=== PATIENT | male | born 1960 | race Caucasian/White ===

== ENCOUNTER 2020-05-12 09:59 | Outpatient (REF) | payer MEDICARE, MEDICAID, SELFPAY ==
[2020-05-12 11:14] LABS: Alanine Aminotransferase 30 U/L (0-40); Aspartate Amino Transferase 21 U/L (5-37)
== END 2020-05-12 10:00 | disposition home or self-care (01) ==
LOC: HO.LAB 09:59
PROVIDERS: PCP Family Medicine; Visit Provider Family Medicine
DX: E78.00 Pure hypercholesterolemia, unspecified (principal)
CPT/HCPCS: 82550; 84450; 84460

== ENCOUNTER 2021-02-16 12:00 | Outpatient (RCR) | payer MEDICARE, MEDICAID, SELFPAY | END 2021-03-23 14:34 | disposition home or self-care (01) | LOC: HO.PT 12:00 | PROVIDERS: Visit Provider Orthopaedic Surgery | DX: Z96.651 Presence of right artificial knee joint (principal) | CPT/HCPCS: 97110; 97140; 97161; 97530 ==

== ENCOUNTER 2021-03-15 11:49 | Outpatient (REF) | payer MEDICARE, MEDICAID, SELFPAY ==
[2021-03-15 13:24] LABS: Alanine Aminotransferase 32 U/L (0-40); Anion Gap 10 (12-20); Aspartate Amino Transferase 24 U/L (5-37); Blood Urea Nitrogen 14 mg/dL (9-16); Carbon Dioxide 25 mmol/L (22-29); Chloride 108 mmol/L (96-108); Estimated Glomerular Filt Rate > 60; Potassium 4.3 mmol/L (3.3-5.1); Sodium 139 mmol/L (135-145)
== END 2021-03-15 11:50 | disposition home or self-care (01) ==
LOC: HO.LAB 11:49
PROVIDERS: PCP Family Medicine; Visit Provider Family Medicine
DX: I10 Essential (primary) hypertension (principal); E78.00 Pure hypercholesterolemia, unspecified; Z79.899 Other long term (current) drug therapy
CPT/HCPCS: 36415; 80051; 82550; 82565; 84450; 84460; 84520

== ENCOUNTER 2021-07-29 02:24 | Emergency (ER) | payer MEDICARE, MEDICAID, SELFPAY ==
[2021-07-29 02:36] VITALS: BP 125/86; PULSE 79; RESP 16; TEMP 37.1; O2SAT 94; BMI 33.5
[2021-07-29 03:09] VITALS: BP 121/74; PULSE 74; RESP 16; TEMP 36.6; O2SAT 95
--- NOTE | 2021-07-29 03:10 | ED_ITS ---
HPI - General Adult General Chief complaint: General Medical Stated complaint: sinuses & eyes irritated Time Seen by Provider: 07/29/21 03:09 Source: patient Mode of arrival: ambulatory Limitations: no limitations History of Present Illness HPI narrative: 60 years old male came in for evaluation of facial pressure and possible sinus infection. Symptoms started 2 days ago as pressure behind his eyes and upper teeth, with greenish discharge from the right nostril, patient had a history of sinus infection in the past and this is similar to his previous presentation, no fever, no chills. Patient received 3 vaccination for his COVID. Related Data Previous Rx's Medication Instructions Recorded amoxicillin 875 mg-potassium 1 tab PO BID #20 tab 07/29/21 clavulanate 125 mg tablet Allergies Allergy/AdvReac Type Severity Reaction Status Date / Time No Known Allergies Allergy Verified 07/29/21 02:35 Review of Systems Review of Systems: All other systems are reviewed and are negative Constitutional: Reports as per HPI and Reports no additional constitutional complaints Eyes: Reports as per HPI and Reports no additional eye complaints Reports system reviewed and no additional complaints, except as documented Cardiovascular: Reports as per HPI and Reports no additional cardiovascular complaints Respiratory: Reports as per HPI and Reports no additional respiratory complaints Gastrointestinal: Reports as per HPI and Reports no additional gastrointestinal complaints Genitourinary: Reports no additional female genitourinary complaints Musculoskeletal: Reports no additional musculoskeletal complaints Skin/Breast: Reports system reviewed and no additional complaints, except as docu Psychiatric: Reports no additional psychiatric complaints Endocrine: Reports no additional endocrine complaints Hematologic/Lymphatic: Reports no additional hematologic/lymphatic complaints Allergic/Immunologic: Reports no additional allergic/immunologic complaints Reports system reviewed and no additional complaints, except as documented and Reports Abnormal speech present [facility] Past Medical History Medical History High cholesterol Surgical History History of hip replacement Social History Social History Advance Directives: No Physical Exam ED Vital Signs: Vital Signs - 24 hr 07/29/21 02:36 07/29/21 03:09 Temperature 98.8 F 97.9 F Pulse Rate 79 74 Respiratory Rate 16 16 Blood Pressure 125/86 121/74 Pulse Oximetry 94 95 BMI result Body Mass Index 33.5 Vital signs have been reviewed as appeared to be correct. Blood pressure normal. Heart rate normal. Respiration rate normal. Temperature normal. Oxygen saturation normal. Appearance: Alert. Oriented X3. No acute distress. Head: Normal external exam. Normocephalic. Atraumatic. No [place]is signs noted. No raccoon eyes noted Eyes: PERRLA. EOMI. Conjunctiva and sclera normal. Eyelids normal. ENT: TM's Normal. Pharynx normal. Bilateral maxillary sinuses tenderness with percussion right more than left, right nostril erythema with no purulent discharge. Mild bifrontal sinuses tenderness with percussion. Neck: Normal inspection. Neck supple. FROM. No adenopathy. Thyroid Normal. No meningeal signs. No neck mass noted. CVS: Normal heart rate and rhythm. Heart sound normal. No murmurs noted. Pulses normal throughout. Respiratory: No respiratory distress. Painless inspiration. Breath sounds nor mal. No wheezes/rales/rhonchi noted. Chest nontender. No accessory muscle usage noted or decreased air movement noted. Abdomen: Soft and nontender. Bowel sounds normal in all 4 quadrants. No distent ion noted. No organomegaly noted. No visible injury noted. Back: No CVA tenderness. Full range of motion noted. Skin: Skin warm and dry. Normal skin color. Normal skin turgor. No rashes/lesions/lacerations noted. Extremities: No lower extremity edema. Extremities exhibit normal range of motion. Extremities nontender. Neuro: Oriented X 3. Cranial nerve exam: II-XII are grossly intact No motor deficit. No sensory deficit. Reflexes normal. Course Course Course Narrative: Assessment and plan print 60-year-old male came with facial pressure, physical exam is consistent with maxillary sinusitis, will start the patient on Augmentin/1 dose of prednisone. Discharge Plan Discharge Clinical Impression: Acute sinusitis Patient Disposition: Home, Self-Care Instructions: Sinusitis (ED) Prescriptions: New amoxicillin-pot clavulanate 875-125 mg tablet 1 tab PO BID Qty: 20 0RF Referrals: Ramesh Gaytan MD [Primary Care Provider] - 2 days
[2021-07-29] MEDS: Amoxicillin/Potassium Clav 875 MG TABLET PO (03:21)
[2021-07-29] MEDS: Ibuprofen 800 MG TABLET PO (03:21)
[2021-07-29] MEDS: predniSONE 10 MG TABLET 60 MG PO (03:22)
== END 2021-07-29 03:32 | disposition home or self-care (01) ==
PROVIDERS: Emergency Provider Emergency Medicine; PCP Family Medicine
DX: J01.00 Acute maxillary sinusitis, unspecified (principal)
CPT/HCPCS: 99283; 99284

== ENCOUNTER 2021-10-25 08:58 | Emergency (ER) | payer MEDICARE, MEDICAID, SELFPAY ==
[2021-10-25 09:03] VITALS: BP 125/105; PULSE 72; RESP 18; TEMP 36.7; O2SAT 97; BMI 33.5
--- NOTE | 2021-10-25 09:23 | ED_ITS ---
HPI - URI/Sore Throat General Chief Complaint: Upper Respiratory Symptoms Stated Complaint: difficulty breathing through nose Time Seen by Provider: 10/25/21 09:16 Source: patient Mode of arrival: ambulatory Limitations: no limitations History of Present Illness HPI Narrative: 61-year-old male presenting to the ED with complaints of nasal congestion / rhinorrhea with intermittent headaches worse when he leans forward he reports he believes he has a sinus infection. Was seen here approximately 3 months ago and diagnosed with a sinus infection and sent home with antibiotics and he reports his symptoms completely resolved. He reports that he has been having the symptoms for approximately 1 week. He denies recent travel or sick contacts. He denies any fevers, chills, dizziness, neck pain/ stiffness, sore throat, loss of taste or smell, cough, sputum production, nausea /vomiting/ diarrhea constipation, abdominal pain, rashes, recent travel or sick contacts. Reports that he does not want to be tested for COVID and the flu. MD elicited complaint: rhinorrhea, nasal congestion and sinus pain Onset (ago): week(s) (1) Consistency: constant and progressively worsening Severity: moderate Description of mucous: yellow (/hermosillo) Able to tolerate fluids by mouth: Yes Exacerbating factors: leaning forward Relieving factors: other (Mild relief with [id number] nasal sprays/cold medicine) Associated symptoms: headache, rhinorrhea and nasal congestion Treatments prior to arrival: cold medicine ( /nasal spray) Related Data Previous Rx's Medication Instructions Recorded amoxicillin 875 mg-potassium 1 tab PO BID #20 tab 07/29/21 clavulanate 125 mg tablet amoxicillin 875 mg-potassium 1 tab PO BID 10 Days #20 tab 10/25/21 clavulanate 125 mg tablet Allergies Allergy/AdvReac Type Severity Reaction Status Date / Time No Known Allergies Allergy Verified 07/29/21 02:35 Review of Systems Review of Systems: Constitutional : No Weight loss, No Fever, No Chills, No N ight Sweats, No Fatigue, No Malaise ENT/Mouth : No Hearing loss, No Ear Pain, + Nasal Congestion, + Sinus Pain, No Hoarseness, No sore throat, + Rhinorrhea, No Swallowing Difficulty Eyes: No Eye Pain, No Swelling, No Redness, No Foreign Body, No Discharge, No Vision Changes Cardiovascular : No Chest Pain, No SOB, No Dyspnea on Exertion, No Orthopnea, No Edema, No Palpitations Respiratory : No Cough, No Sputum, No Wheezing, No Smoke Exposure, No Dyspnea Gastrointestinal : No Nausea, No Vomiting, No Diarrhea, No Constipation, No abdominal Pain, No Hematochezia, No Melena Genitourinary : no irregular bleeding, No Dysuria, No Urinary Frequency, No Hematuria, No Urinary Incontinence, No Urgency, No Flank Pain, No Urinary Flow Changes, No Hesitancy Musculoskeletal : No joint pain, No Myalgias, No Joint Swelling Skin : No Skin Lesions, No rash Neuro : No Weakness, No Numbness, No Paresthesias, No Loss of Consciousness, No Dizziness, No Headache Psych : No Anxiety/Panic, No Depression, No SI/HI/AH/VH, No Social Issues, Heme/Lymph: No Bruising, No Bleeding,No Lymphadenopathy Endocrine : No Polyuria, No Polydipsia, No Temperature Intolerance Yes all other systems are reviewed and are negative [facility] Past Medical History Attestation statement: The following information was validated with the patient. Medical History High cholesterol Surgical History History of hip replacement Physical Exam Vital Signs: Vital Signs: Last Vital Signs Temp 98.1 F 10/25/21 09:03 Pulse 72 10/25/21 09:03 Resp 18 10/25/21 09:03 BP 125/105 H 10/25/21 09:03 Pulse Ox 97 10/25/21 09:03 BMI result Body Mass Index 33.5 vital signs have been reviewed as normal and appeared to be correct. Blood pressure normal. Heart rate normal. Respiration rate normal. Temperature normal. Oxygen saturation normal. Appearance: Alert. Oriented X3. No acute distress. Head: Normal external exam. Normocephalic. Atraumatic. Eyes: PERRLA. EOMI. Conjunctiva and sclera normal. Eyelids normal. ENT: EAC normal. TM's Normal. Pharynx normal. Uvula midline. Moist mucous membranes. No lesions/ulcerations or masses noted on the tongue. Normal voice. No trismus noted. No drooling noted. No muffled voice noted. Sinus pressure pain. Neck: Normal inspection. Neck supple. FROM. No adenopathy. Thyroid Normal. No tracheal deviation noted. No crepitus is noted. No meningeal signs. No neck mass noted. No signs of trauma noted. CVS: Normal heart rate and rhythm. Heart sound normal. Pulses normal throughout. No murmurs/rales/gallops. Respiratory: No respiratory distress. Painless inspiration. Breath sounds normal. No wheezes/rales/rhonchi noted. Chest nontender. No crepitus is noted. No signs of trauma noted. No accessory muscle usage noted or decreased air movement noted. No signs of trauma. Abdomen: Soft and nontender. Bowel sounds normal in all 4 quadrants. No distention noted. No organomegaly noted. No visible injury noted. Back: Full range of motion noted. Nontender. No signs of trauma. Patient neuro intact bilaterally and distally on all 4 extremities. Patient's reflexes intact bilaterally and distally on all 4 extremities. No rashes/lesion/induration/fluctuance or signs of infection noted. Skin: Skin warm and dry. Normal skin color. Normal skin turgor. No rashes/ lesions/lacerations noted. Extremities: No lower extremity edema. No calf tenderness is noted. Extremities exhibit normal range of motion and nontender. Neuro: Oriented X 3. No motor deficit. No sensory deficit. Reflexes normal. Normal steady gait. No focal neuro deficits noted. CN's II-XII intact bilaterally? Vascular: + radial pulses/+ 2 distal pedal pulses/+2 dorsalis pedis b/l. Normal cap refill. No cyanosis noted to upper extremity nails and lower extremity toes nails. Course Course Course Narrative: Patient most likely sinusitis. He is declining COVID and flu swab. Recheck blood pressure was 132/64. Therefore at this time will DC home with antibiotics and symptomatic treatment instructions return if any new or worsening symptoms to follow up with primary care provider. Patient understands agrees with this plan. MDM - URI/Sore Throat Medical Records Attestation: I reviewed the patient's medical records. Discharge Plan Discharge Clinical Impression: Sinusitis Patient Disposition: Home, Self-Care Instructions: Sinusitis (ED) Prescriptions: New amoxicillin-pot clavulanate 875-125 mg tablet 1 tab PO BID 10 Days Qty: 20 0RF No Action amoxicillin-pot clavulanate 875-125 mg tablet 1 tab PO BID Qty: 20 0RF Referrals: Ramesh Gaytan MD [Primary Care Provider] - 2 days
[2021-10-25 09:29] VITALS: BP 132/64
== END 2021-10-25 09:37 | disposition home or self-care (01) ==
LOC: HO.ED 09:29
PROVIDERS: Emergency Provider Student in an Organized Health Care Education/Training Program; PCP Family Medicine
DX: J32.9 Chronic sinusitis, unspecified (principal)
CPT/HCPCS: 99282; 99283

== ENCOUNTER 2022-02-19 19:58 | Emergency (ER) | payer MEDICARE, MEDICAID, SELFPAY ==
[2022-02-19 20:09] VITALS: BP 145/74; PULSE 85; RESP 18; TEMP 37.3; O2SAT 95; BMI 32.1
[2022-02-19 21:41] LABS: COVID-19 Test Negative (Negative); IDNOW Serial# 16C4AD1C
--- NOTE | 2022-02-19 21:50 | ED.GENADULT ---
HPI - General Adult General Chief complaint: General Medical Stated complaint: congested,sinus pain Time Seen by Provider: 02/19/22 20:57 Source: patient Mode of arrival: ambulatory History of Present Illness HPI narrative: 61-year-old male with 3rd episode nasal congestion and drainage with significant sinus pain, less seen here in October of this year now presents with pain in drainage since earlier this morning but denies any associated fever or chills, shortness of breath or chest pain. Related Data Previous Rx's Medication Instructions Recorded amoxicillin 875 mg-potassium 1 tab PO BID #20 tabs 07/29/21 clavulanate 125 mg tablet amoxicillin 875 mg-potassium 1 tab PO BID Sinusitis 10 days 10/25/21 clavulanate 125 mg tablet #20 tabs amoxicillin 875 mg-potassium 1 tab PO Q12H 10 days #20 tabs 02/19/22 clavulanate 125 mg tablet Allergies Allergy/AdvReac Type Severity Reaction Status Date / Time No Known Allergies Allergy Verified 07/29/21 02:35 Review of Systems Review of Systems: Pertinent positives and negatives as stated in HPI 10 point review of systems is otherwise negative. PMFSH Past Medical History Source: nursing notes reviewed Medical History High cholesterol Surgical History History of hip replacement Social History Social History Advance Directives: No Advance Directives Information Provided: No Physical Exam ED Vital Signs: Vital Signs - 24 hr 02/19/22 20:09 Temperature 99.2 F Pulse Rate 85 Respiratory Rate 18 Blood Pressure 145/74 H Pulse Oximetry 95 Oxygen Delivery Method Room Air BMI result Body Mass Index 32.1 VITAL SIGNS: Reviewed. GENERAL: Well developed, well nourished, in no acute distress. HEAD: Normocephalic/atraumatic EYES: PERRLA, EOMI EARS: Ext canals without abnormality, TMs non-bulging and non-erythematous NOSE: Nasal congestion, right greater than left with purulent drainage from the right and tenderness to palpation across maxillary sinuses OROPHARYNX: no oral lesions noted, posterior pharynx clear NECK: Supple, no adenopathy LUNGS: Normal breath sounds. No adventitious sounds or accessory muscle use. SpO2<95> CARDIOVASCULAR: Regular rate and rhythm without noted murmurs ABDOMEN: Soft, non-tender, non-distended with bowel sounds. MUSCULOSKELETAL: No tenderness, deformities, or effusions noted on gross inspection. EXTREMITIES: No cyanosis, clubbing or edema. SKIN: Inspection of the skin reveals no rashes NEUROLOGIC: Alert and oriented x 4. Strength and sensation to light touch were grossly intact x 4. Course Course Course Narrative: 61-year-old male with history and clinical presentation consistent with sinusitis. Review of COVID-19 testing is negative. Patient received initial antibiotics here and was instructed to follow-up with his primary care provider for possible referral to ENT. Medical Decision Making Lab Data Labs: Lab Results 02/19/22 Range/Units 21:19 COVID-19 ([facility]) Negative (Negative) COVID-19 Clin Com See Note Discharge Plan Discharge Clinical Impression: Acute sinusitis Patient Disposition: Home, Self-Care Instructions: Sinusitis (ED) Additional Instructions: 1. Complete the entire course of antibiotics as ordered. 2. Follow-up with your primary care provider and discuss possible referral to ENT for further investigation of your sinuses as this is the 3rd episode within a year. Return to the ER for worsening symptoms. Prescriptions: New amoxicillin-pot clavulanate 875-125 mg tablet 1 tab PO Q12H 10 Days Qty: 20 0RF No Action amoxicillin-pot clavulanate 875-125 mg tablet 1 tab PO BID 10 Days Qty: 20 0RF amoxicillin-pot clavulanate 875-125 mg tablet 1 tab PO BID Qty: 20 0RF Referrals: Ramesh Gaytan MD [Primary Care Provider] -
[2022-02-19] MEDS: Ibuprofen 400 MG TABLET PO (22:43)
[2022-02-19] MEDS: Acetaminophen 325 MG TABLET 975 MG PO (22:43)
[2022-02-19] MEDS: Amoxicillin/Potassium Clav 875 MG TABLET PO (22:44)
[2022-02-19 22:50] VITALS: BP 155/85; PULSE 84; RESP 14; TEMP 36.6; O2SAT 97
--- NOTE | 2022-02-19 22:54 | PC.NURSE ---
Discharge instructions provided to pt. Pt verbalizes understanding. No apparent distress noted.
== END 2022-02-19 22:55 | disposition home or self-care (01) ==
PROVIDERS: Emergency Provider Student in an Organized Health Care Education/Training Program; PCP Family Medicine
DX: J01.00 Acute maxillary sinusitis, unspecified (principal); Z20.822 Contact with and (suspected) exposure to COVID-19
CPT/HCPCS: 87635; 99283; 99284

== ENCOUNTER 2022-03-28 07:46 | Outpatient (REF) | payer MEDICARE, MEDICAID, SELFPAY ==
[2022-03-28 09:01] LABS: Alanine Aminotransferase 47 U/L (0-40); Anion Gap 18 (12-20); Aspartate Amino Transferase 34 U/L (5-37); Blood Urea Nitrogen 13 mg/dL (9-16); Carbon Dioxide 19 mmol/L (22-29); Chloride 107 mmol/L (96-108); Cholesterol 134 mg/dL; Estimated Glomerular Filt Rate > 60; Glucose Fasting 96 mg/dL (60-99); HDL Cholesterol 28 mg/dL; Potassium 4.7 mmol/L (3.3-5.1); Sodium 139 mmol/L (135-145)
[2022-03-28 09:10] LABS: LDL Cholesterol Calculated 69 mg/dl; Triglycerides 185 mg/dL
== END 2022-03-28 07:47 | disposition home or self-care (01) ==
LOC: HO.LAB 07:46
PROVIDERS: PCP Family Medicine; Visit Provider Family Medicine
DX: E78.00 Pure hypercholesterolemia, unspecified (principal); I10 Essential (primary) hypertension; Z79.899 Other long term (current) drug therapy; Z83.3 Family history of diabetes mellitus
CPT/HCPCS: 36415; 80051; 80061; 82550; 82565; 82947; 84450; 84460; 84520

== ENCOUNTER 2022-04-10 05:49 | Emergency (ER) | payer MEDICARE, MEDICAID, SELFPAY ==
--- NOTE | ~2022-04-10 | US_ITS ---
EXAMINATION: US VENOUS ULTRASOUND WITH DOPPLER LOWER EXTREMITY, RIGHT CLINICAL INFORMATION: Right calf pain, rule out DVT. COMPARISON: None TECHNIQUE: Ultrasound of the deep veins is performed from the hip to the calf with compression sonography and color and pulse Doppler assessment. Spectral analysis with color-flow imaging is performed. FINDINGS: Positive deep venous thrombosis is seen at the level of the mid right posterior and peroneal veins. There is no evidence for deep venous thrombosis in the right common femoral, profunda femoral, femoral popliteal veins. No right popliteal cyst. The subcutaneous soft tissues are unremarkable. US/US venous duplex LE RT IMPRESSION: Positive deep venous thrombosis in the mid right posterior tibial and peroneal veins. This critical result were reported to Dr. Kwok at 8:45 AM on 04/10/2022 and it was ascertained that the content and urgency of the report was understood at the time of direct communication.
[2022-04-10 06:00] VITALS: BP 132/84; PULSE 77; RESP 18; TEMP 36.8; O2SAT 95; BMI 30.7
[2022-04-10] MEDS: Acetaminophen 325 MG TABLET 975 MG PO (07:17)
[2022-04-10 07:50] LABS: MANUAL DIFF FLAG NO
[2022-04-10 07:54] LABS: Basophils Percent Auto 0.3 % (0-2); Eosinophils Absolute Auto 0.4 X10*3/uL (0.0-0.4); Eosinophils Percent Auto 4.7 % (0-4); Hematocrit 41.8 % (42.0-52.0); Hemoglobin 14.4 g/dl (14.0-18.0); Imm Gran Abs Auto 0.03 X10*3/uL (0.00-0.03); Imm Gran Pct Auto 0.3 % (0.0-0.4); Lymphocytes Absolute Auto 1.5 X10*3/uL (1.2-4.9); Lymphocytes Percent Auto 17.1 % (20-40); Mean Corpuscular HGB Conc 34.4 g/dl (31.0-36.0); Mean Corpuscular Hemoglobin 29.9 pg (27.0-33.0); Mean Corpuscular Volume 86.9 fL (80.0-98.0); Mean Platelet Volume 9.5 fL (9.4-12.4); Monocytes Absolute Auto 0.9 X10*3/uL (0.1-1.2); Neutrophils Absolute Auto 5.9 x10*3/uL (2.0-8.3); Neutrophils Percent Auto 67.6 % (45-73); Platelet Count 235 X10*3/uL (160-400); Red Blood Count 4.81 X10*6/uL (4.60-5.80); Red Cell Distribution Width 13.2 % (11.0-16.0); White Blood Count 8.7 X10*3/uL (4.8-10.8)
[2022-04-10 08:00] LABS: INTERNATIONAL NORM RATIO 1.1 (0.9-1.1); Prothrombin Time 12.1 SEC (10.0-13.1)
[2022-04-10 08:02] LABS: Partial Thromboplastin Time 30.9 SEC (26.0-36.4)
[2022-04-10 08:10] LABS: Alanine Aminotransferase 41 U/L (0-40); Albumin Level 3.9 g/dL (3.5-5.0); Alkaline Phosphatase 106 U/L (39-117); Anion Gap 13 (12-20); Aspartate Amino Transferase 28 U/L (5-37); Bilirubin Total 0.8 mg/dL (0.0-1.0); Blood Urea Nitrogen 13 mg/dL (9-16); Calcium 8.8 mg/dL (8.4-10.2); Carbon Dioxide 21 mmol/L (22-29); Chloride 107 mmol/L (96-108); Creatinine Clr Calc Pharmacy 108.6; Estimated Glomerular Filt Rate > 60; Glucose Random 109 mg/dL (60-115); Potassium 4.5 mmol/L (3.3-5.1); Sodium 136 mmol/L (135-145); Total Protein 6.9 g/dL (6.5-8.0)
[2022-04-10 08:34] VITALS: BP 117/47; PULSE 71; RESP 14; TEMP 36.7; O2SAT 95
--- NOTE | 2022-04-10 08:48 | ED.EXTPRO ---
HPI - Extremity Problem General Chief complaint: Extremity Problem Stated complaint: Right leg pain Time Seen by Provider: 04/10/22 06:34 Source: patient Mode of arrival: ambulatory Limitations: no limitations History of Present Illness HPI Narrative: 61-year-old male who presents emergency department for evaluation of right calf swelling and pain. Patient states that the symptoms started suddenly 2 days prior. He denies any injury. He describes the pain as a constant, stiffness which is 10/10. He states the pain is located from his right knee down to his right ankle. This is the 1st time he has experienced this type of pain. He believes that his right calf is swollen compared to the left calf. Patient has not gone on any long trips. He has not had any recent surgeries. He has not had any immobilization of his extremity. He states that approximately 1 month prior he did have an upper respiratory infection with congested but otherwise is not been sick in any way. He has no history of a clotting disorder. He denied fever, chills, rhinorrhea, sore throat, cough, chest pain, shortness of breath, dyspnea exertion, nausea, vomiting, diarrhea. He has not noticed any dark black stools or bloody stools. He has not gained any weight or lost any weight. He states that he has not had any difficulty swallowing, drinking or eating. He denied abdominal pain. MD Complaint: extremity pain Onset (ago): day(s) (2) Pain Consistency: constant Location: right Severity scale (1-10): >10 Quality: other (Stiffness) Radiation: none Relieving factors: nothing Exacerbating factors: nothing Associated symptoms: denies other symptoms Related Data Previous Rx's Medication Instructions Recorded amoxicillin 875 mg-potassium 1 tab PO BID #20 tabs 07/29/21 clavulanate 125 mg tablet amoxicillin 875 mg-potassium 1 tab PO BID Sinusitis 10 days 10/25/21 clavulanate 125 mg tablet #20 tabs amoxicillin 875 mg-potassium 1 tab PO Q12H 10 days #20 tabs 02/19/22 clavulanate 125 mg tablet apixaban 5 mg (74 tabs) tablets in 5 mg PO BID #74 ea 04/10/22 a dose pack (Eliquis DVT-PE Treat 30D Start) Allergies Allergy/AdvReac Type Severity Reaction Status Date / Time No Known Allergies Allergy Verified 07/29/21 02:35 Review of Systems Review of Systems: Yes all other systems are reviewed and are negative [facility], LAT[facility] Past Medical History FOR[facility], LAT[facility] Narrative: Past surgical history: Patient had tonsillectomy when he was young. 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 Social history: He denies tobacco, alcohol and drug use. Medical History High cholesterol Surgical History History of hip replacement Social History Social History Patient Tobacco Use Status: Never used Tobacco Smoked in Last 30 Days: No Use of substances other than those prescribed or required for medical reasons: No Advance Directives: No Advance Directives Information Provided: Yes Physical Exam Vital Signs: Vital Signs: Last Vital Signs Temp 98.0 F 04/10/22 08:34 Pulse 71 04/10/22 08:34 Resp 14 04/10/22 08:34 BP 117/47 L 04/10/22 08:34 Pulse Ox 95 04/10/22 08:34 O2 Del Method 04/10/22 08:34 BMI result Body Mass Index 30.7 Const: General: cooperative and no acute distress Orientation/consciousness: oriented to person and oriented to place Limitations: no limitations HEENT: Head: Yes normal to inspection, Yes normocephalic and Yes atraumatic Ears: external ears normal General nose exam: Normal external nose present Face and sinus: Yes normal facial exam Mouth: Normal oral and palatal mucosa present Throat: Yes posterior oropharynx normal Eyes: General: appearance normal, both eyes and all related structures Pupils: Equal, round and reactive pupils present Neck: Neck: Yes normal visual inspection, Yes no lymphadenopathy, Yes trachea midline and Yes supple Chest: Chest palpation & inspection: normal inspection of the chest and normal palpation of entire chest wall Resp: Effort & Inspection: normal respiratory effort and able to speak in complete sentences Auscultation: clear to auscultation bilaterally Cardio: Rate: regular rate Rhythm: regular rhythm Heart sounds: S1 normal heart sound present, S2 normal heart sound present and no murmurs GI: Inspection: Yes normal to inspection Palpation (GI): Soft to palpation, nontender and no guarding Auscultation: normal bowel sounds : General: Yes no CVA tenderness Back/Spine/Pelvis: Back: no CVA tenderness Skin: General skin exam: no rashes or lesions noted Neuro: General: oriented to person and oriented to place Cranial nerves: Yes CN's II-XII intact bilaterally and Yes Equal, round and reactive pupils present Cognition (Neuro): normal cognition Motor exam (neuro): 5/5 motor strength present throughout Extrem: Other: Patient's right calf does appear to be slightly larger than the left calf. Patient does have tenderness with squeezing the right calf. There is no skin discoloration, increased warmth or breakdown of his skin. His extremities are neurovascular intact. Psych: Appearance: grossly normal Speech and movement: Normal speech and movement present Affect: normal affect Attitude: cooperative Thought process: Normal thought process present Thought content: Normal thought content present Course Course Course Narrative: 61 year-old male who presents emergency department for evaluation of 2 days right calf pain with no known injury. Patient had no other symptoms. Vital signs initially were normal. Physical examination did reveal some slight increased size of the right calf compared to the left with tenderness palpation of the right calf. I ordered laboratory evaluation to include CBC, CMP, PT/INR, PTT and duplex ultrasound of the patient's right calf. Patient was given Tylenol 975 mg orally for his pain. 0856: Patient's laboratory evaluation was unremarkable. Duplex ultrasound was positive for calf DVT. I did discuss this with the patient. Since there is no obvious cause for this pain I did order anticoagulation workup to include: D-dimer, protein C, protein S, antithrombin 3, factor 5 Leiden mutation, prothrombin [id number] mutation, lupus anticoagulant. I will start the patient on Eliquis and refer him to our rip machine operator for further workup. Patient does not have any other systemic symptoms that are concerning for malignancy but I did discuss this is a possible cause of DVT with the patient as well. Radiology impression: Positive deep venous thrombosis in the mid right posterior tibial and peroneal veins. This critical result were reported to Dr. Kwok at 8:45 AM on 04/10/2022 and it was ascertained that the content and urgency of the report was understood at the time of direct communication. Dictated By:Demario De La Vega MD Medications Administered Discontinued Medications Generic Name Dose Route Start Last Admin Trade Name Maribeth PRN Reason Stop Dose Admin Acetaminophen 975 mg 04/10/22 06:55 04/10/22 07:17 Acetaminophen 325 Mg Tablet PO 04/10/22 06:56 975 mg ONCE STA Administration MDM - Extremity (Nontraumatic) Lab Data Result diagrams: 04/10/22 07:45 04/10/22 07:45 Labs: Lab Results 04/10/22 04/10/22 04/10/22 Range/Units 07:45 07:45 07:45 WBC 8.7 (4.8-10.8) X10*3/uL RBC 4.81 (4.60-5.80) X10*6/uL Hgb 14.4 (14.0-18.0) g/dl Hct 41.8 L (42.0-52.0) % MCV 86.9 (80.0-98.0) fL MCH 29.9 (27.0-33.0) pg MCHC 34.4 (31.0-36.0) g/dl RDW 13.2 (11.0-16.0) % Plt Count 235 (160-400) X10*3/uL MPV 9.5 (9.4-12.4) fL Immature Gran % (Auto) 0.3 (0.0-0.4) % Neut % (Auto) 67.6 (45-73) % Lymph % (Auto) 17.1 L (20-40) % [place] % (Auto) 10.0 (2-11) % Eos % (Auto) 4.7 H (0-4) % Baso % (Auto) 0.3 (0-2) % Lymph # (Auto) 1.5 (1.2-4.9) X10*3/uL [place] # (Auto) 0.9 (0.1-1.2) X10*3/uL Eos # (Auto) 0.4 (0.0-0.4) X10*3/uL Baso # (Auto) 0.0 (0.0-0.2) X10*3/uL Abs Immat Gran (auto) 0.03 (0.00-0.03) X10*3/uL Absolute Neuts (auto) 5.9 (2.0-8.3) x10*3/uL Absolute Nucleated RBC 0.000 (0.0-0.012) X10*3/uL Nucleated RBC % (auto) 0.0 (0.0-0.2) /100WBC PT 12.1 (10.0-13.1) SEC INR 1.1 (0.9-1.1) APTT 30.9 (26.0-36.4) SEC Sodium 136 (135-145) mmol/L Potassium 4.5 (3.3-5.1) mmol/L Chloride 107 (96-108) mmol/L Carbon Dioxide 21 L (22-29) mmol/L Anion Gap 13 (12-20) BUN 13 (9-16) mg/dL Creatinine 0.87 (0.5-1.4) mg/dL Estim Creat Clear Calc 108.6 Estimated GFR > 60 Random Glucose 109 (60-115) mg/dL Calcium 8.8 (8.4-10.2) mg/dL Total Bilirubin 0.8 (0.0-1.0) mg/dL AST 28 (5-37) U/L ALT 41 H (0-40) U/L Alkaline Phosphatase 106 (39-117) U/L Total Protein 6.9 (6.5-8.0) g/dL Albumin 3.9 (3.5-5.0) g/dL Discharge Plan Discharge Clinical Impression: Acute deep vein thrombosis (DVT) of calf muscle vein of right lower extremity Patient Disposition: Home, Self-Care Instructions: Deep Vein Thrombosis (ED) Additional Instructions: The ultrasound revealed a blood clot in your right calf which explains her symptoms. I am starting you on Eliquis 5 mg pills, take 2 pills every 12 hours for 7 days then 1 pill every 12 hours. You will need to be on this medication for 3-6 months. At this time I do not have a good reason for you to have a blood clot in your calf. There are several reasons why you may have a blood clot including being hypercoagulable (making more blood clots than usual) I did add multiple blood tests to your blood work and you will need to follow-up with our rip machine operator to review these tests. Sometimes, blood clots can be caused by cancer and sometimes blood clots have been for no specific reason Follow-up with with our rip machine operator in 1-2 weeks. You will need to follow-up with your primary care provider to get refills of your Eliquis. Please return to the emergency department if your symptoms get worse or if you develop any symptoms that are concerning to you. Prescriptions: New Eliquis DVT-PE Treat 30D Start 5 mg (74 tabs) tablets,dose pack 5 mg PO BID Qty: 74 0RF Rx Instructions: Take 2 pills every 12 hours for 1 week then take 1 pill every 12 hours No Action amoxicillin-pot clavulanate 875-125 mg tablet 1 tab PO BID 10 Days Qty: 20 0RF amoxicillin-pot clavulanate 875-125 mg tablet 1 tab PO Q12H 10 Days Qty: 20 0RF amoxicillin-pot clavulanate 875-125 mg tablet 1 tab PO BID Qty: 20 0RF Referrals: Jyotsna Buenrostro MD [Physician] - 2 weeks (Right calf DVT, no clear etiology, follow-up for hypercoagulability studies ordered in the ED)
[2022-04-10] MEDS: Apixaban 5 MG TABLET 10 MG PO (10:34)
[2022-04-10 10:48] LABS: D Dimer High Sensitivity 160 NG/ML
[2022-04-14 19:57] LABS: Factor V Leiden NEGATIVE
[2022-04-14 21:27] LABS: Prothrombin 20210A NEGATIVE
[2022-04-14 22:32] LABS: Protein C Activity 103 % normal (70-180)
[2022-04-14 22:36] LABS: Anti-Thrombin III Activity 110 % normal (80-135); Protein S Activity rflx Tot&Fr 100 % normal (70-150)
[2022-04-15 22:17] LABS: Anti-Thrombin III Antigen 80 % normal (80-120)
[2022-04-17 00:16] LABS: Hexagonal Phase Neutralization Negative (Negative); PTT (LAC) Screen 48 sec (<=40)
== END 2022-04-10 10:40 | disposition home or self-care (01) ==
PROVIDERS: Emergency Provider Emergency Medicine Emergency Medical Services; PCP Family Medicine
DX: I82.4Z1 Acute embolism and thrombosis of unspecified deep veins of right distal lower extremity (principal); M79.604 Pain in right leg; R60.0 Localized edema; Z79.899 Other long term (current) drug therapy
CPT/HCPCS: 36415; 80053; 81240; 81241; 85025; 85300; 85301; 85302; 85303; 85305; 85306; 85379; 85597; 85610; 85613; 85730; 93971; 99284

== ENCOUNTER 2022-06-03 12:25 | Outpatient (REF) | payer MEDICARE, MEDICAID, SELFPAY ==
[2022-06-03 12:54] LABS: COVID-19 Test Negative (Negative)
[2022-06-03 12:55] LABS: IDNOW Serial# 9DB6401D
== END 2022-06-03 12:26 | disposition home or self-care (01) ==
LOC: HO.LAB 12:25
PROVIDERS: PCP Family Medicine; Visit Provider Internal Medicine
DX: Z20.822 Contact with and (suspected) exposure to COVID-19 (principal)
CPT/HCPCS: 87635; C9803

== ENCOUNTER 2022-10-07 10:18 | Outpatient (REF) | payer MEDICARE, MEDICAID, SELFPAY ==
[2022-10-07 11:26] LABS: Alanine Aminotransferase 32 U/L (0-40); Albumin Level 4.1 g/dL (3.5-5.0); Alkaline Phosphatase 107 U/L (39-117); Aspartate Amino Transferase 21 U/L (5-37); Bilirubin Direct 0.2 mg/dL (0.0-0.5); Bilirubin Total 0.7 mg/dL (0.0-1.0)
== END 2022-10-07 10:19 | disposition home or self-care (01) ==
LOC: HO.LAB 10:18
PROVIDERS: PCP Family Medicine; Visit Provider Family Medicine
DX: K75.81 Nonalcoholic steatohepatitis (NASH) (principal)
CPT/HCPCS: 36415; 80076

== ENCOUNTER 2023-04-04 08:52 | Outpatient (REF) | payer MEDICARE, MEDICAID, SELFPAY ==
[2023-04-04 10:03] LABS: Alanine Aminotransferase 28 U/L (0-40); Aspartate Amino Transferase 21 U/L (5-37); Glucose Fasting 99 mg/dL (60-99)
== END 2023-04-04 08:53 | disposition home or self-care (01) ==
LOC: HO.LAB 08:52
PROVIDERS: PCP Family Medicine; Visit Provider Family Medicine
DX: I10 Essential (primary) hypertension (principal); R73.9 Hyperglycemia, unspecified; Z79.899 Other long term (current) drug therapy
CPT/HCPCS: 36415; 82550; 82947; 84450; 84460

== ENCOUNTER 2023-08-03 08:34 | Outpatient (REF) | payer MEDICARE, MEDICAID, SELFPAY ==
--- NOTE | ~2023-08-03 | XR_ITS ---
EXAMINATION: XR HIP, LEFT CLINICAL INFORMATION: Left hip pain. COMPARISON: None available. TECHNIQUE: Two views of the left hip. FINDINGS: Degenerative changes on limited views of the inferior aspect of the left sacroiliac joint. Degenerative changes with moderate joint space narrowing and acetabular hypertrophic change left hip. Alignment preserved. XR/XR hip LT min 2V IMPRESSION: Moderate degenerative changes in the left hip. Additional imaging with CT scan should be considered if there is clinical concern for fracture or other underlying pathology.
== END 2023-08-03 08:35 | disposition home or self-care (01) ==
LOC: HO.XRAY 08:34
PROVIDERS: PCP Family Medicine; Visit Provider Family Medicine
DX: M25.552 Pain in left hip (principal)
CPT/HCPCS: 73502

== ENCOUNTER 2024-01-24 09:11 | Outpatient (REF) | payer MEDICARE, MEDICAID, SELFPAY ==
[2024-01-24 10:37] LABS: Alanine Aminotransferase 35 U/L (0-40); Aspartate Amino Transferase 24 U/L (5-37)
== END 2024-01-24 09:12 | disposition home or self-care (01) ==
LOC: HO.LAB 09:11
PROVIDERS: PCP Family Medicine; Visit Provider Family Medicine
DX: E78.00 Pure hypercholesterolemia, unspecified (principal); Z79.899 Other long term (current) drug therapy
CPT/HCPCS: 36415; 82550; 84450; 84460

== ENCOUNTER 2024-05-23 14:03 | Outpatient (REF) | payer MEDICARE, MEDICAID, SELFPAY ==
[2024-05-23 15:05] LABS: Alanine Aminotransferase 29 U/L (0-40); Aspartate Amino Transferase 26 U/L (5-37)
== END 2024-05-23 14:04 | disposition home or self-care (01) ==
LOC: HO.LAB 14:03
PROVIDERS: PCP Family Medicine; Visit Provider Family Medicine
DX: E78.00 Pure hypercholesterolemia, unspecified (principal)
CPT/HCPCS: 36415; 82550; 84450; 84460

== ENCOUNTER 2024-09-14 00:26 | Emergency (ER) | payer MEDICARE, MEDICAID, SELFPAY ==
--- NOTE | ~2024-09-14 | XR_ITS ---
CLINICAL HISTORY: cough 1 view chest x-ray. Comparison: None Findings: The lungs appear clear. There is no consolidation, effusion, or nodule identified. Cardiomediastinal silhouette is within normal limits. IMPRESSION: No acute cardiopulmonary abnormality. This document has been electronically signed by: Vikram Richmond MD on 09/14/2024 03:00:05
[2024-09-14 00:31] VITALS: BP 150/56; PULSE 69; RESP 18; TEMP 36.6; O2SAT 95; BMI 29.9
[2024-09-14 01:33] LABS: Influenza A PCR NEGATIVE (Negative); Influenza B PCR NEGATIVE (Negative); Resp Syncy Virus RNA Qual PCR NEGATIVE (Negative); SARS COV2 PCR INHOUSE NEGATIVE (Negative)
--- NOTE | 2024-09-14 02:58 | ED.URI ---
HPI - URI/Sore Throat General Chief Complaint: Upper Respiratory Symptoms Stated Complaint: congestion Time Seen by Provider: 09/14/24 02:41 Source: patient Mode of arrival: ambulatory Limitations: no limitations History of Present Illness ED Provider: HPI Narrative: Patient is complaining of nasal congestion since yesterday with thick purulent nasal discharge history of same in the past has a low-grade fever no other family member sick feels exhausted Related Data Previous Rx's ?Medication ?Instructions ?Recorded amoxicillin 875 mg-potassium 1 tab PO BID #20 tabs 07/29/21 clavulanate 125 mg tablet amoxicillin 875 mg-potassium 1 tab PO BID Sinusitis 10 days 10/25/21 clavulanate 125 mg tablet #20 tabs amoxicillin 875 mg-potassium 1 tab PO Q12H 10 days #20 tabs 02/19/22 clavulanate 125 mg tablet apixaban 5 mg (74 tabs) tablets in 5 mg PO BID #74 ea 04/10/22 a dose pack ([employer] DVT-PE Treat 30D Start) amoxicillin 875 mg-potassium 1 tab PO BID #20 tabs 09/14/24 clavulanate 125 mg tablet Allergies Allergy/AdvReac Type Severity Reaction Status Date / Time No Known Allergies Allergy Verified 09/14/24 00:59 Review of Systems Review of Systems: Yes all other systems are reviewed and are negative [facility] Past Medical History Medical History High cholesterol Surgical History History of hip replacement Social History Social History Patient Tobacco Use Status: Never used Tobacco Physical Exam Vital Signs: Vital Signs: Last Vital Signs Temp 98.0 F 09/14/24 03:10 Pulse 76 09/14/24 03:10 Resp 18 09/14/24 03:10 BP 148/88 H 09/14/24 03:10 Pulse Ox 96 09/14/24 03:10 O2 Del Method Room Air 09/14/24 03:10 BMI result Body Mass Index 29.9 Appearance: Alert. Oriented X3. No acute distress. Eyes: no pallor or icterus ENT: Pharynx normal Oral Mucosa moist tympanic membrane intact no erythema, inflamed nasal turbinate purulent nasal discharge Neck: Normal inspection. Neck supple. CVS: Normal heart rate and rhythm. Pulses normal. Respiratory: No respiratory distress. Equal air entry bilateral, no wheezing/rales/rhonchi Abd: soft, not tender Skin: Skin warm and dry. Normal skin color. Normal skin turgor. Extremities: No lower extremity edema, no calf tenderness Neuro: Oriented X 3. Medications Administered Discontinued Medications Generic Name Dose Route Start Last Admin Trade Name Freq PRN Reason Stop Dose Admin Amoxicillin/Clavulanate Potassium 875 mg 09/14/24 02:58 09/14/24 03:06 Amoxicillin/Potassium Clav 875 Mg Tablet PO 09/14/24 02:59 875 mg ONCE ONE Administration Medical Decision Making Lab Data [facility] Lab Attestation statement: I reviewed the patient's lab results. Labs: Lab Results 09/14/24 Range/Units 00:45 Influenza Type A (PCR) NEGATIVE (Negative) Influenza Type B (PCR) NEGATIVE (Negative) RSV RNA Qual (PCR) NEGATIVE (Negative) SARS-CoV-2 RNA (RT-PCR) NEGATIVE (Negative) Discharge Plan Discharge Clinical Impression: Sinusitis Patient Disposition: Home, Self-Care Instructions: Rhinosinusitis (DC) Additional Instructions: Your COVID flu RSV negative Take antibiotic as prescribed Prescriptions: New amoxicillin-pot clavulanate 875-125 mg tablet 1 tab PO BID Qty: 20 0RF No Action amoxicillin-pot clavulanate 875-125 mg tablet 1 tab PO BID 10 Days Qty: 20 0RF amoxicillin-pot clavulanate 875-125 mg tablet 1 tab PO Q12H 10 Days Qty: 20 0RF amoxicillin-pot clavulanate 875-125 mg tablet 1 tab PO BID Qty: 20 0RF Eliquis DVT-PE Treat 30D Start 5 mg (74 tabs) tablets,dose pack 5 mg PO BID Qty: 74 0RF Rx Instructions: Take 2 pills every 12 hours for 1 week then take 1 pill every 12 hours Interventions: ED Discharge Assessment Last Done: 09/14/24 03:10 Discharge Date/Time: 09/14/24 03:11 Print Language: Bruneian
[2024-09-14] MEDS: Amoxicillin/Potassium Clav 875 MG TABLET PO (03:06)
[2024-09-14 03:10] VITALS: BP 148/88; PULSE 76; RESP 18; TEMP 36.7; O2SAT 96
== END 2024-09-14 03:11 | disposition home or self-care (01) ==
PROVIDERS: Emergency Provider Internal Medicine; PCP Family Medicine
DX: J32.9 Chronic sinusitis, unspecified (principal); R09.81 Nasal congestion; R05.9 Cough, unspecified; Z03.818 Encounter for observation for suspected exposure to other biological agents ruled out; Z79.899 Other long term (current) drug therapy
CPT/HCPCS: 0241U; 71045; 99282; 99283

== ENCOUNTER → 2024-09-14 02:30 | Outpatient (BNV) | payer MEDICARE, MEDICAID, SELFPAY | PROVIDERS: Emergency Provider Internal Medicine; PCP Family Medicine; Visit Provider Radiology Diagnostic Radiology | DX: R05.9 Cough, unspecified (principal) | CPT/HCPCS: 71045 ==

== ENCOUNTER 2025-03-10 09:05 | Outpatient (AMB) | payer MEDICARE, MEDICAID, SELFPAY ==
--- NOTE | 2025-03-10 09:11 | A.OFFPC_ITS ---
Vital Signs 03/10/25 09:14 Height 5 ft 10.08 in Weight 97.069 kg BMI 30.6 BP 144/72 H Blood Pressure Location Lt brachial Position Sitting Respiration 20 Pulse 62 Pulse Source Pulse Oximeter Temp 97.9 F Temp Source Temporal Artery Scan Pulse Oximetry (%) 97 Oxygen Delivery Method Room Air Intake Visit Reasons: Routine / Dr Gaytan Labor Relations Supervisor Required: No Accompanied by: Self / Same As Patient Allergies No Known Allergies Allergy (Verified 03/10/25 09:11) Tobacco use date assessed: 03/10/25 Dental Screening Dental Screen Date: 03/10/25 Did you have a dental visit in the last 12 months?: Yes Did you have a dental problem in the last 6 months where you did not have access to dental care?: No Was dental information given to patient?: Patient has dentist HPI HPI Comments History of Present Illness Details 64-year-old male with history of right l ower extremity DVT, hyperlipidemia, essential tremor presenting to the office today for management of chronic conditions and to establish care. He is a former patient of Dr. Gaytan, last seen within the last 6 months. RLE DVT- dx 2021. Appears to be unprovokes. On eliquis. No pain HLD- on atorvastatin Tremors LUE- ongoing 2-3 years. Intention Hearing loss L ear- ongoing since age 2. Unclear if infection driven. Health maintenance: Last colonoscopy 06/2015, 10 year follow-up advised. Dr. June Due for screening PSA ROS: General: No fevers, malaise, unintentional weight loss HEENT: No blurred vision, diplopia. No sore throat, nasal congestion, rhinorrhea, sinus pain, ear pain Cardiovascular: No chest pain, palpitations, or leg edema Respiratory: No shortness of breath, wheezing, cough GI: No abdominal pain, nausea, vomiting, diarrhea, constipation, melena, hematochezia : No dysuria, hematuria, increased urinary frequency, decreased urinary output MSK: No myalgia, back pain Neuro: No headaches, weakness, paresthesias Skin: No rashes or lesions EXAM: Constitutional - Awake and Alert, No apparent distress Eyes - PERRL Cardiovascular - S1S2, RRR, No edema Respiratory - Normal lung expansion, Normal respiratory effort, No respiratory distress, CTA bilaterally Extremities - no calf tenderness bilaterally, no swelling Skin - Warm/Dry Neurological - Alert & oriented x3 Psychological - Appropriate affect PFSH Medical History (Updated 03/10/25 @ 13:14 by EMERITA Bolanos) Right leg DVT Essential tremor Hearing loss in left ear High cholesterol Surgical History (Updated 03/10/25 @ 09:34 by EMERITA Bolanos) History of colonoscopy (~06/24/15) History of hip replacement Social History Housing: Apartment Patient Tobacco Use Status: Never used Tobacco e-Cigarette/Vaping Use: Never Used service: No Current occupational status: employed Current occupation: [employer] Questionnaire PHQ-9 Over the last 2 weeks, how often have you been bothered by any of the following problems? 1. Little interest or pleasure in doing things: not at all 2. Feeling down, depressed, or hopeless: several days 3. Trouble falling or staying asleep, or sleeping too much: several days 4. Feeling tired or having little energy: several days 5. Poor appetite or overeating: several days 6. Feeling bad about yourself - or that you are a failure or have let yourself or your family down: more than half the days 7. Trouble concentrating on things, such as reading the newspaper or watching television: more than half the days 8. Moving or speaking so slowly that other people could have noticed. Or the opposite - being so fidgety or restless that you have been moving around a lot more than usual: more than half the days 9. Thoughts that you would be better off or of hurting yourself in some way: not at all Total score: 10 Source: Developed by Drs. Dao Steen, Dawn Martin, Herman Barnett and colleagues, with an educational tate from [employer]. Thrive Questionnaire Date Thrive assessed: 03/10/25 I am a: Patient What is your living situation today?: I have a steady place to live Within the past 12 months, did the food you bought not last and you didn't have the money to get more?: Never true Within the past 12 months, did you worry whether your food would run out before you got money to buy more?: Never true Do you have trouble paying for medicines?: No Do you have trouble getting transportation to medical appointments?: No Do you have trouble paying your heating and electricity bill?: No Do you have trouble taking care of your child, family member or friend?: No Do you have trouble with day-to-day activities such as bathing, preparing meals, shopping, managing finances, etc.?: No Are you currently unemployed and looking for a job?: No Are you interested in more education?: No THRIVE Score: 0 AUDIT C Alcohol Use Questionnaire (AUDIT-C) 1. How often do you have a drink containing alcohol?: Never 3. How often do you have six or more drinks on one occasion?: Never Total Score: 0 MARY-7 AMB Questionnaire MARY-7 Date MARY - 7 assessed: 03/10/25 Feeling nervous, anxious, or on edge: 1 = Several days Not being able to stop or control worryin = Several days Worrying too much about different things: 1 = Several days Trouble relaxin = Several days Being so restless that it is hard to sit still: 2 = More than half the days Becoming easily annoyed or irritable: 2 = More than half the days Feeling afraid as if something awful might happen: 1 = Several days Total MARY-7 score (0-4 normal; 5-9 mild; 10-14 moderate; 15-21 severe): 9 Source: Developed by Drs. Dao Steen, Dawn Martin, Herman Barnett and colleagues, with an educational tate from [employer]. Physical exam (Primary Care) Vital Signs: Last Vital Signs Temp 97.9 F 03/10/25 09:14 Pulse 62 03/10/25 09:14 Resp 20 03/10/25 09:14 BP 144/72 H 03/10/25 09:14 Pulse Ox 97 03/10/25 09:14 Oxygen Delivery Method Room Air 03/10/25 09:14 BMI result Body Mass Index 30.6 Tobacco/Smoking Status: Tobacco use Status Tobacco use date assessed 03/10/25 03/10/25 09:13 Patient Tobacco Use Status Never used Tobacco 03/10/25 09:13 e-Cigarette/Vaping Use Never Used 03/10/25 09:19 PHQ-9: PHQ-9 Score PHQ-9: Total score 10 03/10/25 09:43 Thrive Assessment: Date of Thrive Assessment Date Thrive assessed 03/10/25 03/10/25 09:33 Coding Level of Care Code New Pt Level 4 (43056) Complex EM visit Add On G2211 Diagnoses Essential tremor G25.0 Right leg DVT I82.401 Hearing loss in left ear H91.92 High cholesterol E78.00 Assessment & Plan Assessment & Plan (1) Essential tremor: Code(s): G25.0 - Essential tremor Category: Medical Plan: Check vitamin b12 level. Monitor (2) Right leg DVT: Code(s): I82.401 - Acute embolism and thrombosis of unspecified deep veins of right lower extremity Category: Medical Plan: Continue eliquis (3) Hearing loss in left ear: Code(s): H91.92 - Unspecified hearing loss, left ear Category: Medical Plan: Referred to audiology (4) High cholesterol: Code(s): E78.00 - Pure hypercholesterolemia, unspecified Category: Medical Plan: Lipid panel ordered. Continue lipitor. WOrk on weight loss efforts Plan Follow-up in the office in 6 months. Labs to be completed as below. Referred to audiology Orders: Orders Lipid Panel Today H91.92 - Unspecified hearing loss, left ear, R73.9 - Hyperglycemia, unspecified, Z12.5 - Encounter for screening for malignant neoplasm of prostate Vitamin B12 Today H91.92 - Unspecified hearing loss, left ear, R73.9 - Hyperglycemia, unspecified, Z12.5 - Encounter for screening for malignant neoplasm of prostate Prostate Specific Antigen Today H91.92 - Unspecified hearing loss, left ear, R73.9 - Hyperglycemia, unspecified, Z12.5 - Encounter for screening for malignant neoplasm of prostate Basic Metabolic Panel Today H91.92 - Unspecified hearing loss, left ear, R73.9 - Hyperglycemia, unspecified, Z12.5 - Encounter for screening for malignant neoplasm of prostate Hemoglobin A1c Today H91.92 - Unspecified hearing loss, left ear, R73.9 - Hyperglycemia, unspecified, Z12.5 - Encounter for screening for malignant neoplasm of prostate Complete Blood Count Auto Diff Today H91.92 - Unspecified hearing loss, left ear, R73.9 - Hyperglycemia, unspecified, Z12.5 - Encounter for screening for malignant neoplasm of prostate Liver Panel Today H91.92 - Unspecified hearing loss, left ear, R73.9 - Hyperglycemia, unspecified, Z12.5 - Encounter for screening for malignant neoplasm of prostate TSH reflex Free T4 Today H91.92 - Unspecified hearing loss, left ear, R73.9 - Hyperglycemia, unspecified, Z12.5 - Encounter for screening for malignant neoplasm of prostate Referrals Audiology Referral E78.00 - Pure hypercholesterolemia, unspecified Medications: Discontinued amoxicillin-pot clavulanate 875-125 mg Discontinued Reason: Patient Completed Course 1 tab PO BID 20 tabs 0RF amoxicillin-pot clavulanate 875-125 mg Discontinued Reason: Patient Completed Course 1 tab PO BID 10 days 20 tabs 0RF Sinusitis amoxicillin-pot clavulanate 875-125 mg Discontinued Reason: Patient Completed Course 1 tab PO Q12H 10 days 20 tabs 0RF amoxicillin-pot clavulanate 875-125 mg Discontinued Reason: Patient Completed Course 1 tab PO BID 20 tabs 0RF
[2025-03-10 09:14] VITALS: BP 144/72; PULSE 62; RESP 20; TEMP 36.6; O2SAT 97; BMI 30.6
== END 2025-03-10 09:48 | disposition home or self-care (01) ==
PROVIDERS: PCP Physician Assistant; Visit Provider Physician Assistant
DX: G25.0 Essential tremor (principal); I82.401 Acute embolism and thrombosis of unspecified deep veins of right lower extremity; H91.92 Unspecified hearing loss, left ear; E78.00 Pure hypercholesterolemia, unspecified

== ENCOUNTER 2025-03-10 09:05 | Outpatient (REF) | payer MEDICARE, MEDICAID, SELFPAY ==
[2025-03-10 10:23] LABS: MANUAL DIFF FLAG NO
[2025-03-10 11:01] LABS: Hematocrit 41.3 % (42.0-52.0); Hemoglobin 14.0 g/dl (14.0-18.0); Imm Gran Abs Auto 0.03 X10*3/uL (0.00-0.03); Imm Gran Pct Auto 0.4 % (0.0-0.4); Lymphocytes Absolute Auto 2.4 X10*3/uL (1.2-4.9); Mean Corpuscular HGB Conc 33.9 g/dl (31.0-36.0); Mean Corpuscular Hemoglobin 29.7 pg (27.0-33.0); Mean Corpuscular Volume 87.7 fL (80.0-98.0); NRBC Abs Auto 0.000 X10*3/uL (0.0-0.012); NRBC Pct Auto 0.0 /100WBC (0.0-0.2); Platelet Count 239 X10*3/uL (160-400); Red Blood Count 4.71 X10*6/uL (4.60-5.80); White Blood Count 7.9 X10*3/uL (4.8-10.8)
--- OUTSIDE RECORDS SUMMARY | 2025-03-10 11:18 | XMS_ITS | Patient Health Record ---
Author Organization [facility] Address [address] [place] [address] Care Team Providers Care Vehicle Inspector Name Role Phone Lukas (RETIRED) Ramesh GOMES Primary Care Provider Unavailable Michael June Jr Unavailable Reason For Referral No Information Medications Medication SIG (Take, Route, Frequency, Duration) Notes Start Date End Date Status Colyte with Flavor Packs 240 GM As directed Orally Over the specified time.; Duration: 1 day(s) 03/04/2015 Active Atorvastatin Calcium Active Problems Problem Type SNOMED Code ICD Code Onset Dates Problem Status W/U Status Risk Notes Problem Colon cancer screening (175054212) Colon cancer screening (Z12.11) Active confirmed Plan Of Treatment Future Test Test Name Order Date COLONOSCOPY 03/04/2015 Insurance Providers Payer Name Payer Address Payer Phone Subscriber Number Group Number Insured Name Patient Relationship to Insured Coverage Start Date Coverage End Date MEDICARE OF [place] [address] VIGNESH FUNEZ [id number] [phone] [id number] SALAS CORREIA Self - patient is the insured MEDICAID OF [facility] [address] [place] [phone] [id number] SALAS CORREIA Self - patient is the insured Medical (General) History Medical History History ICD Code Denies ND,DM,CVA,Lung disease,renal dise ase elevated cholesterol left ear deafness Surgical History Surgery Date(Month/Year) tonsillectomy 1969
--- OUTSIDE RECORDS SUMMARY | 2025-03-10 11:18 | XMS_ITS | Encounter Summary ---
Author Organization [facility] Address [address] [place] [address] Phone Care Team Providers Care Traffic Reporter Name Role Phone Ramesh Gaytan MD Primary Care Provider [phone] Encounter Details Date Type Department Care Team ([facility] st Contact Info) Description 12/21/2020 Anti-coag visit [facility] Anticoagulation Clinic [address] [place] [address] Nessa Burch, PharmD [email or web address] Social History Tobacco Use Types Packs/Day Years Used Date Smoking Tobacco: Never Smokeless Tobacco: Never Alcohol Use Standard Drinks/Week Comments Not Currently 0 (1 standard drink = 0.6 oz pur e alcohol) Sex and Gender Information Value Date Recorded Sex Assigned at Male 10/20/2020 9:38 AM EDT Legal Sex Male 9:34 AM EDT Gender Identity Male 10/20/2020 9:38 AM EDT Sexual Orientation Straight 10/20/2020 9: 38 AM EDT documented as of this encounter Plan of Treatment Not on file documented as of this encounter Visit Diagnoses Not on filedocumented in this encounter Care Teams Traffic Reporter Relationship Specialty Start Date End Date Ramesh Gaytan MD [address] [place] [address] [place] [address] PCP - General Internal Medicine 12/03/20 documented as of this encounter Additional Source Comments The information contained in this document represents components of the legal health record. It is not the complete legal health record.[facility]
--- OUTSIDE RECORDS SUMMARY | 2025-03-10 11:19 | XMS_ITS | Clinical Summary ---
Author Organization [facility] Address [address] [place] [address] Phone Care Team Providers Care Agile Scrum Master Name Role Phone Ramesh Gaytan MD Primary Care Provider [phone] Allergies No known active allergies Medications atorvastatin (LIPITOR) 20 MG tablet Take 20 mg by mouth daily. Active warfarin (COUMADIN) 2 MG tabletIndications :deep vein thrombosis prevention Take 4 tablets (8 mg total) by mouth every evening. Or dosing as directed by the [facility] Anticoagulation Management Service. Indications: deep vein thrombosis prevention 60 tablet 1 12/09/19 Active senna (SENOKOT) 8.6 mg tabletIndications :Primary osteoarthritis of right hip Take 2 tablets by mouth nightly at bedtime. To prevent constipation. Stop taking if you have diarrhea or loose bowel movements. 20 tablet 12/09/19 Active Additional Information Patient not taking.Reported on 12/22/2020 polyethylene glycol (MIRALAX) 17 gram packetIndications :Primary osteoarthritis of right hip Take 17 g by mouth daily as needed (constipation). 10 each 12/09/19 Active Additional Information Patient not taking.Reported on 12/22/2020 oxyCODONE 5 MG immediate release tabletIndications :Primary osteoarthritis of right hip Take 1-2 tablets (5-10 mg total) by mouth every 4 (four) hours as needed for severe pain. Partial fill ok 40 tablet 12/09/19 Active Additional Information Patient not taking.Reported on 12/22/2020 Active Problems Problem Noted Date Diagnosed Date Primary osteoarthritis of right hip 12/07/2020 Status post total hip replacement, right 021 Social History Tobacco Use Types Packs/Day Years Used Date Smoking Tobacco: Never Smokeless Tobacco: Never Alcohol Use Standard Drinks/Week Comments Not Currently 0 (1 standard drink = 0.6 oz pur e alcohol) Education Answer Date Recorded Are you interested in more education? Not on jaleesa e 09/17/2022 Are you concerned about learning? Not on file 09/17/2022 No 09/17/2022 No 09/17/2022 Digital Access Answer Date Recorded No 10/18/2022 No 10/18/2022 Reliable internet access at home? Not on file 10/18/2022 Device with a working camera? Not on file Sex and Gender Information Value Date Recorded Sex Assigned at Male 10/20/2020 9:38 AM EDT Legal Sex Male 9:34 AM EDT Gender Identity Male 10/20/2020 9:38 AM EDT Sexual Orientation Straight 10/20/2020 9: 38 AM EDT Last Filed Vital Signs Vital Sign Reading Time Taken Comments Blood Pressure 121/73 01/14/2021 11:45 AM EDT Pulse 76 12/08/2020 11:59 AM EDT Temperature 36 C (96.8 F) 01/14/2021 11:45 AM EDT Respiratory Rate 16 12/08/2020 11:59 AM EDT Oxygen Saturation 98% 12/08/2020 11:59 AM EDT Inhaled Oxygen Concentration - - Weight 109.8 kg (242 lb) 12/04/2020 6:57 PM EDT Height 180.3 cm (5' 11 ) 12/04/2020 6:57 PM EDT Body Mass Index 33.75 12/04/2020 6:57 PM EDT Plan of Treatment Health Maintenance Due Date Last Done Comments Adult Td,Tdap Booster 1961 LIPID PANEL 1961 DEPRESSION SCREENING 1973 HEPATITIS C SCREENING 08/09/1979 HIV ONE-TIME SCREENING (18-65 YEARS) 08/09/1979 COLOGUARD 2006 COLONOSCOPY 2006 COLORECTAL CANCER SCREENING 2006 FIT TEST 2006 FOBT 2006 SIGMOIDOSCOPY 2006 VIRTUAL COLONOSCOPY 2006 PNEUMOCOCCAL VACCINES (50+ years) (1 of 1 - PCV) 08/09/2011 ZOSTER VACCINES (1 of 2) 08/09/2011 INFLUENZA VACCINE (#1) 2024 0, 02/26/2018, 12/20/2016, Additional history exists COVID-19 VACCINE ( - 2024- season) 2025 08/12/2020 RSV VACCINE (1 - 1-dose 75+ series) 2036 SMOKING STATUS SCREENING (Once After 26 Yrs) Completed 02/11/2021 HEPATITIS A VACCINES Aged Out No long er eligible based on patient's age to complete this topic HIB VACCINES Aged Out No longer eligi ble based on patient's age to complete this topic MENINGOCOCCAL VACCINES (ACWY) Aged Out No longer eligible based on patient's age to complete this topic MENINGOCOCCAL VACCINES (B) Aged Out N o longer eligible based on patient's age to complete this topic Medical Devices Implanted Type Area Livestock Ranch Hand Device Identifier Shelf Expiration Date Model / Serial / Lot Screw Bone 25x6.5mm Cortical Acetabular Self Tapping Cable Ready Trauma Trilogy Hip 16a - [id number] Implanted:Qty: 1 on 12/04/2020 by Colby Joseph MD at [facility] Right: Acetabulum KRISTIN / DIV OF [employer] [id number] 1 04/20/2029 [id number] / / [id number] Screw Bone 50x6.5mm Cortical Trilogy Tivanium Titanium Alloy Self Tapping Acetabular - [id number] Implanted:Qty: 1 on 12/04/2020 by Colby Joseph MD at [facility] Right: Acetabulum KRISTIN / DIV [employer] [id number] 1 11/18/2028 [id number] / / [id number] Screw Bone 15x6.5mm Cortical Acetabular Self Tapping Cable Ready Trauma Trilogy Hip 16a - [id number] Implanted:Qty: 1 on 12/04/2020 by Colby Joseph MD at [facility] Right: Acetabulum [employer]RISTIN / [employer] [id number] 1 12/20/2029 [id number] / / [id number] Acetabular Shell 56mm Hole Trilogy Tivanium Titanium Alloy Porous Cluster Bx/1ea - [id number] Implanted:Qty: 1 on 12/04/2020 by Colby Joseph MD at [facility] STANDARD Right: Acetabulum [employer]RISTIN / [employer] [id number] 1 12/17/2029 [id number] / / [id number] Hip Liner 29s00cp Femoral Implant Cup Longevity Highly Crosslinked Std Polyethylene 10 Bx/1ea - [id number] Implanted:Qty: 1 on 12/04/2020 by Colby Joseph MD at [facility] STANDARD Right: Acetabulum KRISTIN / DIV OF [employer] [id number] 1 11/18/2024 [id number] / / [id number] Hip Stem [id number] Large Versys Fiber Metal Midcoat Tivanium Titanium Porous Collared - [id number] Implanted:Qty: 1 on 12/04/2020 by Colby Joseph MD at [facility] STANDARD Femur KRISTIN / [employer] [id number] 06/21/2028 [id number] / / [id number] Femoral Head 32mm Plus 7mm /14 Taper Hip Versys [place] - [id number] Implanted:Qty: 1 on 12/04/2020 by Colby Jsoeph MD at [facility] Right: Femur KRISTIN / [employer] [id number] 09/18/2029 [id number] / / [id number] Insurance [address] [place] [address] [employer] PPO MEDICARE REPLACEMENT [place] MEDICARE PART A & B [address] [place] [address] [employer] PPO MEDICARE REPLACEMENT [place] MED[place] PART A & B AETNA [facility] MEDICARE REPLAC[facility] MEDICARE PART A & B AET[employer] PPO MEDICARE REPLACEMENT [place] MEDICARE PART A & B [address] [place] [address] A[employer] O MEDICARE REPLACEMENT [place] MEDICARE PART A & B [address] [place] [address] AETNA PPO MEDICARE REPLACEMENT [facility] MEDICARE PART A & B AETNA O MEDICARE [place] [address] [address] [place] [address] MEDICARE PART A & B AETNA O MEDICARE [address] [place], [place] [address]HEALTH MEDICARE PART A & B [address] [place] [address] AET[employer] [facility]PO [facility] Advance Directives For more information, please contact: [phone] (9AM - 5PM Jeaneth/[facility], Monday-Monday) * Full Code (Latest Code Status on File) Date Activated Date Inactivated Comments 12/04/2020 3:12 PM Question Answer Comments Code Status Confirmed With: Patient Care Teams Agile Scrum Master Relationship Specialty Start Date End Date Ramesh Gaytan MD [address] [place] [address] [place] [address] PCP - General Internal Medicine 12/03/20 Additional Source Comments The information contained in this document represents components of the legal health record. It is not the complete legal health record.[facility]
--- OUTSIDE RECORDS SUMMARY | 2025-03-10 11:19 | XMS_ITS | Encounter Summary ---
Author Organization [facility] Address [address] [place] [address] Phone Care Team Providers Care Barge Master Name Role Phone Ramesh Gaytan MD Primary Care Provider [phone] Encounter Details Date Type Department Care Team ([facility] Contact Info) Description 12/04/2020 Procedure Pass [facility] Periop [address] [place] [address] Social History Tobacco Use Types Packs/Day Years [...] AM EDT documented as of this encounter Functional Status * Calculated C-SSRS Risk Score (Lifetime/Recent) Answer Date of Assessment Author Moderate Risk 12/04/2020 7:00 PM EDT Elisa Castillo RN * [place] Suicide Severity Rating Scale (Screener/Recent Self-Report) Question Answer Date of Assessment Author 1. Wish to be (Past 1 Month) No 021 7:00 PM EDT Elisa Castillo RN 2. Non-Specific Active Suici zeb Thoughts (Past 1 Month) No 12/04/2020 7:00 PM EDT Perez Castillo RN 6. Suicidal Behavior (Lifetime) Yes 7:00 PM EDT Elisa Castillo RN 6. Suicidal Behavior (3 Months) No 07/16/202 1 7:00 PM EDT Elisa Castillo RN documented as of this encounter Plan of Treatment Not on file documented as of this encounter Visit Diagnoses Not on filedocumented in this encounter Care Teams Barge Master Relationship Specialty Start Date End Date Ramesh Gaytan MD [address] [place] [address] [place] [address] PCP - General Internal Medicine 12/03/20 documented as of this encounter Additional Source Comments The information contained in this document represents components of the legal health record. It is not the complete legal health record.[facility]
--- OUTSIDE RECORDS SUMMARY | 2025-03-10 11:19 | XMS_ITS | Encounter Summary ---
Author Organization [facility] Address [address] [facility] [address] [place] [address] Phone Care Team Providers Care Watch Repairer Name Role Phone Ramesh Gaytan MD Primary Care Provider [phone] Encounter Details Date Type Department Care Team ([facility] Contact Info) Description 12/09/2020 Anti-coag visit [facility] Unknown, Unknown, MD Social History Tobacco Use Types Packs/Day Years [...] on filedocumented in this encounter Care Teams Watch Repairer Relationship Specialty Start Date End Date Ramesh Gaytan MD [address] [place] [address] [place] [address] PCP - General Internal Medicine 12/03/20 documented as of this encounter Additional Source Comments The information contained in this document represents components of the legal health record. It is not the complete legal health record.[facility]
[2025-03-10 11:41] LABS: Alanine Aminotransferase 25 U/L (0-40); Albumin Level 4.1 g/dL (3.5-5.0); Alkaline Phosphatase 102 U/L (39-117); Anion Gap 12 (12-20); Aspartate Amino Transferase 23 U/L (5-37); Blood Urea Nitrogen 13 mg/dL (9-16); Calcium 8.7 mg/dL (8.4-10.2); Carbon Dioxide 24 mmol/L (22-29); Chloride 108 mmol/L (96-108); Cholesterol 136 mg/dL (<200); Estimated Glomerular Filt Rate > 60; HDL Cholesterol 38 mg/dL (>40); Potassium 3.9 mmol/L (3.3-5.1); Sodium 140 mmol/L (135-145); Total Protein 6.7 g/dL (6.5-8.0); Triglycerides 87 mg/dL (<150)
[2025-03-10 11:42] LABS: Prostate Specific Antigen 3.66 ng/mL (<0.05-4.0); Vitamin B12 173 pg/mL (200-900)
== END 2025-03-10 09:06 | disposition home or self-care (01) ==
LOC: HO.LAB 09:05
PROVIDERS: PCP Physician Assistant; Visit Provider Physician Assistant
DX: Z12.5 Encounter for screening for malignant neoplasm of prostate (principal); R73.9 Hyperglycemia, unspecified; H91.92 Unspecified hearing loss, left ear; G25.0 Essential tremor; I82.401 Acute embolism and thrombosis of unspecified deep veins of right lower extremity; E78.00 Pure hypercholesterolemia, unspecified
CPT/HCPCS: 36415; 80048; 80061; 80076; 82607; 83036; 84153; 84443; 85025; 99202

== ENCOUNTER 2025-03-31 07:55 | Outpatient (AMB) | payer MEDICARE, MEDICAID, SELFPAY ==
--- NOTE | 2025-03-31 07:33 | MHC.PC.OV ---
Vital Signs 03/31/25 08:01 03/31/25 08:18 Height 5 ft 11.02 in Weight 96.162 kg BMI 29.5 BP 124/76 128/72 Blood Pressure Location Lt brachial Position Sitting Respiration 20 Pulse 60 Pulse Source Pulse Oximeter Temp 97.8 F Temp Source Temporal Artery Scan Pulse Oximetry (%) 96 Oxygen Delivery Method Room Air Intake Visit Reasons: High BP - see comments Key Account Director Required: No Accompanied by: Self / Same As Patient Allergies No Known Allergies Allergy (Verified 03/31/25 07:33) Tobacco use date assessed: 03/10/25 Dental Screening Dental Screen Date: 03/10/25 HPI HPI Comments History of Present Illness Details 64-year-old male with history of DVT, essential tremor, hypercholesterolemia, vitamin B12 deficiency presenting to the office today for evaluation of elevated blood pressures. He reports that he woke up 1 morning and was feeling lightheaded, concerned about his blood pressure. He presented to a local pharmacy where systolic blood pressures were in the 140s. Blood pressure in the office today is controlled x2 with manual cuff. Concerns: As above Health maintenance: Last colonoscopy 06/2015 ROS: General: No fevers, malaise, unintentional weight loss HEENT: No blurred vision, diplopia. No sore throat, nasal congestion, rhinorrhea, sinus pain, ear pain Cardiovascular: No chest pain, palpitations, or leg edema Respiratory: No shortness of breath, wheezing, cough GI: No abdominal pain, nausea, vomiting, diarrhea, constipation, melena, hematochezia : No dysuria, hematuria, increased urinary frequency, decreased urinary output MSK: No myalgia, back pain Neuro: No headaches, weakness, paresthesias. see hpi Skin: No rashes or lesions EXAM: Constitutional - Awake and Alert, No apparent distress Eyes - PERRL Cardiovascular - S1S2, RRR, No edema Respiratory - Normal lung expansion, Normal respiratory effort, No respiratory distress, CTA bilaterally Extremities - no calf tenderness bilaterally, no swelling Skin - Warm/Dry Neurological - Alert & oriented x3 Psychological - Appropriate affect [facility] Medical History (Updated 03/10/25 @ 13:14 by EMERITA Bolanos) Right leg DVT Essential tremor Hearing loss in left ear High cholesterol Surgical History (Updated 03/10/25 @ 09:34 by EMERITA Bolanos) History of colonoscopy (~06/24/15) History of hip replacement Social History Housing: Apartment Patient Tobacco Use Status: Never used Tobacco e-Cigarette/Vaping Use: Never Used service: No Current occupational status: employed Current occupation: [employer] Questionnaire Thrive Questionnaire Date Thrive assessed: 03/10/25 MARY-7 AMB Questionnaire MARY-7 Date MARY - 7 assessed: 03/10/25 Source: Developed by Drs. Dao Steen, Dawn Martin, Herman Barnett and colleagues, with an educational tate from [employer]. Physical exam (Primary Care) Vital Signs: Last Vital Signs Temp 97.8 F 03/31/25 08:01 Pulse 60 03/31/25 08:01 Resp 20 03/31/25 08:01 BP 128/72 03/31/25 08:18 Pulse Ox 96 03/31/25 08:01 Oxygen Delivery Method Room Air 03/31/25 08:01 BMI result Body Mass Index 29.5 Tobacco/Smoking Status: Tobacco use Status Tobacco use date assessed 03/10/25 03/31/25 07:33 Patient Tobacco Use Status Never used Tobacco 03/31/25 07:33 e-Cigarette/Vaping Use Never Used 03/31/25 07:33 Thrive Assessment: Date of Thrive Assessment Date Thrive assessed 03/10/25 03/31/25 07:33 Coding Level of Care Code Est Pt Level 3 (31079) Complex EM visit Add On G2211 Diagnoses Elevated blood pressure reading R03.0 High cholesterol E78.00 Assessment & Plan Assessment & Plan (1) Elevated blood pressure reading: Code(s): R03.0 - Elevated blood-pressure reading, without diagnosis of hypertension Plan: Discussed that in the office, blood pressures have been within normal limits and low concern for hypertension. Discussed that anxiety could potentially affect blood pressure readings as he is noted to be somewhat anxious in the office today. He can continue checking his blood pressure but would only do it sparingly. (2) High cholesterol: Code(s): E78.00 - Pure hypercholesterolemia, unspecified Category: Medical Plan: He is also concerned about cardiovascular risk given family history of coronary artery disease and CHF. We did discuss his ASCVD risk score. LDL is 81. He is also not a smoker or drinker. Overall risk is low. We will continue monitoring. Reassurance offered. Continue with diet low in saturated fats and highly processed foods as well as exercise for at least 150 minutes weekly. Plan Follow-up in August as scheduled
--- OUTSIDE RECORDS SUMMARY | 2025-03-31 07:59 | XMS_ITS | Patient Health Record ---
Author Organization [facility] Address [address] [place] [address] Care Team Providers Care Dean Of Girls Name Role Phone Lukas (RETIRED) Ramesh GOMES [...] Status Risk Notes Problem Colon cancer screening ([id number]) Colon cancer screening (Z12.11) Active confirmed Plan Of Treatment Future Test Test Name Order Date COLONOSCOPY 03/04/2015 Insurance Providers Payer Name Payer Address Payer Phone Subscriber Number Group Number Insured Name Patient Relationship to Insured Coverage Start Date Coverage End Date MEDICARE OF [place] [address] VIGNESH FUNEZ [id number] SALAS CORREIA Self - patient is the insured MEDICAID OF [facility] [address] [place] [phone] [id number] SALAS CORREIA Self - patient is the insured Medical (General) History Medical History History ICD Code Denies NV,DM,CVA,Lung disease,renal dise ase elevated cholesterol left ear deafness Surgical History Surgery Date(Month/Year) tonsillectomy 1969
--- OUTSIDE RECORDS SUMMARY | 2025-03-31 07:59 | XMS_ITS | Encounter Summary ---
Author Organization [facility] Address [address] [place] [address] Phone Care Team Providers Care Rating Specialist Name Role Phone Ramesh Gaytan MD Primary Care Provider [phone] Encounter Details Date Type Department Care Team ([facility] st Contact Info) Description 12/21/2020 Anti-coag visit [facility] Anticoagulation Clinic [address] [place] [address] Nessa Burch, PharmD [email or web address] Social History Tobacco Use Types Packs/Day Years [...] on filedocumented in this encounter Care Teams Rating Specialist Relationship Specialty Start Date End Date Ramesh Gaytan MD [address] [place] [address] [place] [address] PCP - General Internal Medicine 12/03/20 documented as of this encounter Additional Source Comments The information contained in this document represents components of the legal health record. It is not the complete legal health record.[facility]
--- OUTSIDE RECORDS SUMMARY | 2025-03-31 07:59 | XMS_ITS | Encounter Summary ---
Author Organization [facility] Address [address] [place] [address] Phone Care Team Providers Care Sports Book Board Attendant Name Role Phone Ramesh Gaytan MD Primary Care Provider Encounter Details Date Type Department Care Team ([facility] Contact Info) Description 12/04/2020 Procedure Pass [facility] Periop [address] [place] [address] Social History Tobacco Use Types Packs/Day Years [...] 7:00 PM EDT Elisa Castillo RN * [place] Suicide Severity Rating Scale (Screener/Recent Self-Report) Question [...] on filedocumented in this encounter Care Teams Sports Book Board Attendant Relationship Specialty Start Date End Date Ramesh Gaytan MD [address] [place] [address] [place] [id number] PCP - General Internal Medicine 12/03/20 documented as of this encounter Additional Source Comments The information contained in this document represents components of the legal health record. It is not the complete legal health record.[facility]
--- OUTSIDE RECORDS SUMMARY | 2025-03-31 07:59 | XMS_ITS | Clinical Summary ---
Author Organization [facility] Address [address] [facility] [address] [place] [address] Phone Care Team Providers Care Straw Hat Machine Operator Name Role Phone Ramesh Gaytan MD Primary Care Provider Allergies No known active allergies Medications atorvastatin (LIPITOR) 20 MG tablet Take 20 mg by mouth daily. Active warfarin (COUMADIN) 2 MG tabletIndications :deep vein thrombosis prevention Take 4 tablets (8 mg total) by mouth every evening. Or dosing as directed by the [facility] Anticoagulation Management Service. Indications: deep vein [...] this topic Medical Devices Implanted Type Area Predatory Hunter Device Identifier Shelf Expiration Date Model / Serial / Lot Screw Bone 25x6.5mm Cortical Acetabular Self Tapping Cable Ready Trauma Trilogy Hip 16a - [id number] Implanted:Qty: 1 on 12/04/2020 by Colby Joseph MD at [facility] Right: Acetabulum KRISTIN / DIV OF BRISTOL Simple-FillIBB [id number] 1 04/20/2029 [id number] / / [id number] Screw Bone 50x6.5mm Cortical Trilogy Tivanium Titanium Alloy Self Tapping Acetabular - [id number] Implanted:Qty: 1 on 12/04/2020 by Colby Joseph MD at [facility] Right: Acetabulum KRISTIN / DIV OF BRISTOL Simple-FillIBB [id number] 1 11/18/2028 [id number] / / [id number] Screw Bone 15x6.5mm Cortical Acetabular Self Tapping Cable Ready Trauma Trilogy Hip 16a - [id number] Implanted:Qty: 1 on 12/04/2020 by Colby Joseph MD at [facility] Right: Acetabulum KRISTIN / DIV OF BRISTOL Simple-FillIBB [id number] 1 12/20/2029 [id number] / / [id number] Acetabular Shell 56mm Hole Trilogy Tivanium Titanium Alloy Porous Cluster Bx/1ea - [id number] Implanted:Qty: 1 on 12/04/2020 by Colby Joseph MD at [facility] STANDARD Right: Acetabulum KRISTIN / DIV OF First30Days [id number] 1 12/17/2029 [id number] / / [id number] Hip Liner [id number] Femoral Implant Cup Longevity Highly Crosslinked Std Polyethylene 10 Bx/1ea - [id number] Implanted:Qty: 1 on 12/04/2020 by Colby Joseph MD at [facility] STANDARD Right: Acetabulum KRISTIN / DIV OF InfobrightIBB [id number] 1 11/18/2024 [id number] / / [id number] Hip Stem [id number] Large Versys Fiber Metal Midcoat Tivanium Titanium Porous Collared - [id number] Implanted:Qty: 1 on 12/04/2020 by Colby Joseph MD at [facility] STANDARD Femur KRISTIN / DIV OF [employer] [id number] 06/21/2028 [id number] / / [id number] Femoral Head 32mm Plus 7mm /14 Taper Hip Versys Vidor - [id number] Implanted:Qty: 1 on 12/04/2020 by Colby Joseph MD at [facility] Right: Femur KRISTIN / DIV OF First30Days [id number] 09/18/2029 [id number] / / [id number] Insurance [address] [place] [address] [employer] PPO MEDICARE REPLACEMENT [place] MEDICARE PART A & B [address] [place] [address] A[employer] PPO MEDICARE REPLACEMENT [place] & B Member Subscriber Plan / Payer (Ef fective 2019-Present) Name:Constantino Richmond Member ID:[id number] Relation to Subscriber:Self Name:Constantino Richmond Subscriber ID:[id number] Payer ID:[id number] Group ID:Not on file Type:Medicare Address: [employer] [employer] [address] [place] [address] AETNA [facility] MEDICARE REPLACEMENT [facility] MEDICARE PART A & B AETNA PPO MEDICARE REPLACEMENT Member Subscriber Plan / Payer (Ef fective 2020-Present) Name:Constantino Richmond Member ID:[id number] Relation to Subscriber:Self Name:Constantino Richmond Subscriber ID:[id number] Payer ID:1 ([facility]) Type:Medicare Address: [facility] [address] [place] [address] [place] PART A & B [address] [place] [address] AETNA O MEDICARE REPLACEMENT [place] MED[place] PART A & B [address] [place] [address] AETNA PPO MEDICARE REPLACEMENT [facility] MEDICARE PART A & B AETNA O MEDICARE REPLACEMENT [place] [address] MEDICARE PART A & B AETNA O MEDICARE [place] [place], [place] [address]HEALTH MEDICARE PART A & B [address] [place] [address] AETNA PPO MEDICARE [facility]PLACEMENT [facility] Advance Directives For more information, please contact: [phone] (9AM - 5PM Jeaneth/[facility], Monday-Monday) * Full Code (Latest Code Status on File) Date Activated Date Inactivated Comments 12/04/2020 3:12 PM Question Answer Comments Code Status Confirmed With: Patient Care Teams Straw Hat Machine Operator Relationship Specialty Start Date End Date Ramesh Gaytan MD [address] [place] [address] [place] [address] PCP - General Internal Medicine 12/03/20 Additional Source Comments The information contained in this document represents components of the legal health record. It is not the complete legal health record.[facility]
--- OUTSIDE RECORDS SUMMARY | 2025-03-31 07:59 | XMS_ITS | Encounter Summary ---
Author Organization [facility] Address [address] [place] [address] Phone Care Team Providers Care Associate Professor Of Economics Name Role Phone Ramesh Gaytan MD Primary Care Provider [phone]- [phone] Encounter Details Date Type Department Care Team ([facility] Contact Info) Description 12/09/2020 Anti-coag visit [...] on filedocumented in this encounter Care Teams Associate Professor Of Economics Relationship Specialty Start Date End Date Ramesh Gaytan MD [address] [place] [address] [place] [address] PCP - General Internal Medicine 12/03/20 documented as of this encounter Additional Source Comments The information contained in this document represents components of the legal health record. It is not the complete legal health record.[facility]
[2025-03-31 08:01] VITALS: BP 124/76; PULSE 60; RESP 20; TEMP 36.6; O2SAT 96; BMI 29.5
[2025-03-31 08:18] VITALS: BP 128/72
== END 2025-03-31 08:39 | disposition home or self-care (01) ==
LOC: HO.HMCHD 07:56
PROVIDERS: PCP Physician Assistant; Visit Provider Physician Assistant
DX: R03.0 Elevated blood-pressure reading, without diagnosis of hypertension (principal); E78.00 Pure hypercholesterolemia, unspecified

== ENCOUNTER → 2025-03-31 07:55 | Outpatient (BNVA) | payer MEDICARE, MEDICAID, SELFPAY | PROVIDERS: PCP Physician Assistant; Visit Provider Physician Assistant | DX: R03.0 Elevated blood-pressure reading, without diagnosis of hypertension (principal); E78.00 Pure hypercholesterolemia, unspecified | CPT/HCPCS: 99212 ==

== ENCOUNTER 2025-05-12 19:19 | Emergency (ER) | payer MEDICARE, MEDICAID, SELFPAY ==
--- NOTE | ~2025-05-12 | XR_ITS ---
CLINICAL HISTORY: URI coughing. pnuemonia?. 2 view chest x-ray. Comparison: 09/14/2024 Findings: No consolidation or effusion. Cardiac and mediastinal contours are stable. Bones unremarkable. Impression: 1. No acute pulmonary disease. This document has been electronically signed by: Gilberto George MD on 05/12/2025 20:45:43
[2025-05-12 19:40] VITALS: BP 181/81; PULSE 71; RESP 18; TEMP 36.6; O2SAT 99; BMI 30.7
--- NOTE | 2025-05-12 19:54 | ED_ITS ---
HPI - General Adult General Chief complaint: Upper Respiratory Symptoms Stated complaint: not feeling well Time Seen by Provider: 05/13/25 00:04 Source: patient Mode of arrival: ambulatory Limitations: no limitations History of Present Illness ED Provider: Naga FELDER HPI narrative: The patient is a 64-year-old male who presents to the ED for 48 hours of viral URI symptoms. He describes marked sinus congestion with associated rhinorrhea, and significant facial pressure behind the eyes and across the forehead. The patient also reports experiencing a non-productive cough which interrupts his sleep. He denies associated pleurisy, hemoptysis, productive cough, vomiting, diarrhea, or known sick contacts. 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 He has not taken any vswj-jni-wwuxfyh medications for the symptoms. Related Data Home Medications ?Medication ?Instructions ?Recorded ?Confirmed cyanocobalamin (vitamin B-12) 1,000 mcg PO DAILY 03/31 1,000 mcg sublingual lozenge Previous Rx's ?Medication ?Instructions ?Recorded atorvastatin 20 mg tablet 20 mg PO BEDTIME 90 days #90 tabs 04/21/25 acetaminophen 500 mg capsule 1,000 mg (2 x 500 mg) PO .q8 PRN 05/13/25 fever or pain #30 caps ibuprofen 600 mg tablet 600 mg PO Q8H PRN fever or p ain 05/13/25 #30 tabs Allergies Allergy/AdvReac Type Severity Reaction Status Date / Time No Known Allergies Allergy Verified 05/12/25 19:42 Review of Systems Review of Systems: Yes all other systems are reviewed and are negative [facility] Past Medical History Medical History (Updated 05/14/25 @ 00:00 by Lucina Solano) Right leg DVT Essential tremor Hearing loss in left ear High cholesterol Surgical History (Updated 03/10/25 @ 09:34 by EMERITA Bolanos) History of colonoscopy (~06/24/15) History of hip replacement Social History Social History Housing: Apartment Patient Tobacco Use Status: Never used Tobacco e-Cigarette/Vaping Use: Never Used Advance Directives: No Advance Directives Information Provided: Yes Do you have a plan to hurt others: No Plan service: No Current occupational status: employed Current occupation: [employer] [place] [employer] Physical Exam ED Vital Signs: Vital Signs - 24 hr 05/12/25 19:40 05/12/25 23:52 05/12/25 23:52 Temperature 98 F 98.5 F Pulse Rate 71 72 Respiratory Rate 18 18 Blood Pressure 181/81 H 129/65 Pulse Oximetry 99 94 98 Oxygen Delivery Method Room Air Room Air Room Air 05/13/25 02:37 Temperature 97.7 F Pulse Rate 69 Respiratory Rate 18 Blood Pressure 147/71 H Pulse Oximetry 96 Oxygen Delivery Method Room Air BMI result Body Mass Index 30.7 CONSTITUTIONAL: The patient appears non-toxic, well nourished and in no acute distress. Vital signs as documented. HEAD: Atraumatic, normocephalic. EYES: EOMs grossly intact, pupils equal, conjunctiva clear, no exudate. ENT: Nares patent, no discharge. Airway patent, no audible stridor, visible mucosa is pink and moist without noted lesions. NECK: Trachea is midline, no obvious masses or gross abnormalities. CHEST: Symmetric movement, normal appearance. LUNGS: LS present and CTAB, no w/r/r. Non-labored work of breathing. CARDIAC: Regular Rhythm, S1/S2 appreciated, no murmurs, rubs or gallops. ABDOMEN: Abdomen soft and non-tender x4 quadrants, no palpable masses or organomegaly. : Deferred. EXTREMITIES: Normal tone, moves all extremities spontaneously without reported pain. No obvious acute injury or deformity noted. NEURO: Alert and oriented x3, CN II-XII appear grossly intact. Cerebellar Functioning grossly intact. No obvious sensory or motor deficits. Speech clear and appropriate. PSYCH: normal affect, appropriate eye contact, fluid speech, with appropriate response to questioning. No reported suicidality or homicidality. SKIN: Warm, dry, color appropriate, normal turgor. No rashes noted. Course Course Course Narrative: RME: 64 yold male presents so the ED For coughing, congestion, and headache. swabs and xray ordered Medications Administered Discontinued Medications Generic Name Dose Route Start Last Admin Trade Name Freq PRN Reason Stop Dose Admin Acetaminophen 975 mg 05/13/25 01:59 05/13/25 02:26 Acetaminophen 325 Mg Tablet PO 05/13/25 02:00 975 mg ONCE ONE Administration Ibuprofen 600 mg 05/13/25 01:59 05/13/25 02:26 Ibuprofen 600 Mg Tablet PO 05/13/25 02:00 600 mg ONCE ONE Administration Medical Decision Making Medical Decision Making [facility] Narrative: 2:03 AM 05/13/2025 (Yoandy FELDER): The patient is a 64-year-old male who presents to the ED for 48 hours of viral URI symptoms. He describes marked sinus congestion with associated rhinorrhea, and significant facial pressure behind the eyes and across the forehead. The patient also reports experiencing a non-productive cough which interrupts his sleep. He denies associated pleurisy, hemoptysis, productive cough, vomiting, diarrhea, or known sick contacts. 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 He has not taken any oytt-skm-jdaykio medications for the symptoms. On exam the patient is well- appearing, in no acute distress, posterior pharynx is unremarkable, lung sounds are clear throughout. The patient's viral swabs are negative for influenza, COVID, and RSV. The patient's strep throat swab is negative. The patient's c hest x-ray shows no focal consolidation. Vital signs are unremarkable. Patient is likely suffering from a viral upper respiratory syndrome, given the duration of symptoms there is no indication for antibiotics for sinusitis. Patient will be treated with anti-inflammatories and discharged with supportive care. Admission/Observation Consideration of admission/observation: Escalation of care including admission/observation considered Lab Data [facility] Lab Attestation statement: I reviewed the patient's lab results. Labs: Lab Results 05/12/25 Range/Units 20:03 Influenza Type A (PCR) NEGATIVE (Negative) Influenza Type B (PCR) NEGATIVE (Negative) RSV RNA Qual (PCR) NEGATIVE (Negative) SARS-CoV-2 RNA (RT-PCR) NEGATIVE (Negative) S. pyogenes GrpA YESENIA Negative (Negative) Radiology Impression Discussion of test interpretation with radiology: I have reviewed the radiologist's reading. Radiologist Impression: 2 view chest x-ray. Comparison: 09/14/2024 Findings: No consolidation or effusion. Cardiac and mediastinal contours are stable. Bones unremarkable. Impression: 1. No acute pulmonary disease. This document has been electronically signed by: Gilberto George MD on 05/12/2025 20:45:43 External Record Review External record reviewed: Outpatient record and Prior outpatient labs Discharge Plan Discharge Clinical Impression: Upper respiratory infection Patient Disposition: Home, Self-Care Instructions: Upper Respiratory Infection (ED), Viral Syndrome (ED) Additional Instructions: Thank you for choosing [facility] for your care today. Thankfully your chest x-ray, viral swabs, strep swab, exam, and vital signs today are reassuring. At this time there is no indication for admission to the hospital or continued ED observation, and it is safe to discharge you home. You tested negative for influenza, COVID, RSV, strep throat, and pneumonia. Despite testing negative for these conditions, there are countless other viruses that can cause similar symptoms. Your symptoms are likely due to a viral upper respiratory infection. There is no indication for antibiotics at this time. You should take alternating (staggered) doses of ibuprofen 600mg and Tylenol 1000mg every 4 hours as needed for any additional pain. Please stay well hydrated and get plenty of rest. Please follow up with your primary care physician for re-evaluation, additional management of your symptoms, and continued preventative care. If you do not have a primary care physician, please call the [facility] at [phone] to establish a new primary care physician. While waiting to establish your new primary care physician, you can call our Walk-in Care Clinic at [phone] for non-emergency needs. Please return to the emergency department if you develop a severe or sudden change in your symptoms, a fever over 100.4 that does not improve with Tylenol or Ibuprofen, recurrent vomiting, or any other new or worsening symptoms or concerns. Prescriptions: New ibuprofen 600 mg tablet 600 mg PO Q8H PRN (Reason: fever or pain) Qty: 30 0RF acetaminophen 500 mg capsule 1,000 mg PO .q8 PRN (Reason: fever or pain) Qty: 30 0RF No Action atorvastatin 20 mg tablet 20 mg PO BEDTIME 90 Days Qty: 90 1RF cyanocobalamin (vitamin B-12) 1,000 mcg lozenge 1,000 mcg PO DAILY Referrals: Sue Alston PA [Primary Care Provider, Hospitalist] Clinical Impression: Upper respiratory infection Interventions: ED Discharge Assessment Last Done: 05/13/25 02:37 Discharge Date/Time: 05/13/25 02:38 Print Language: Kazakh
[2025-05-12 20:39] LABS: IDNOW Serial# 152EDE1D; Strep A Nucleic Acid Negative (Negative)
[2025-05-12 21:05] LABS: Resp Syncy Virus RNA Qual PCR NEGATIVE (Negative); SARS COV2 PCR INHOUSE NEGATIVE (Negative)
--- OUTSIDE RECORDS SUMMARY | 2025-05-12 23:45 | XMS_ITS | Encounter Summary ---
Author Organization [facility] Address [address] [place] [address] Phone Care Team Providers Care Portable Trackman Name Role Phone Ramesh Gaytan MD Primary Care Provider Encounter Details Date Type Department Care Team ([facility] Contact Info) Description 12/09/2020 Anti-coag visit [facility] Unknown, Unknown, Social History Tobacco Use Types Packs/Day Years [...] on filedocumented in this encounter Care Teams Portable Trackman Relationship Specialty Start Date End Date Ramesh Gaytan MD [address] [place] [address] Dr LYNN [place] [address] PCP - General Internal Medicine 12/03/20 documented as of this encounter Additional Source Comments The information contained in this document represents components of the legal health record. It is not the complete legal health record.[facility]
--- OUTSIDE RECORDS SUMMARY | 2025-05-12 23:45 | XMS_ITS | Patient Health Record ---
Author Organization [facility] Address [address] [place] [address] Care Team Providers Care Energy Efficiency Specialist Name Role Phone Lukas (RETIRED) Ramesh GOMES Primary Care Provider Unavailable Michael June Jr Unavailable Reason For Referral No Information Medications Medication SIG (Take, Route, Frequency, Duration) Notes Start Date End Date Status Colyte with Flavor Packs 240 GM Solution Reconstituted As directed Orally Over the specified time.; Duration: 1 day(s) 03/04/2015 Active Atorvastatin Calcium Active Social History Social History Additional Details Category Social Info Options Details Miscellaneous: Marital status: single Occupation: inside sales consultant Problems Problem Type SNOMED Code ICD Code Onset Dates Problem Status W/U Status Risk Notes Problem Colon cancer screening (397784664) Colon cancer screening (Z12.11) Active confirmed Plan Of Treatment Future Test Test Name Order Date COLONOSCOPY 03/04/2015 Insurance Providers Payer Name Payer Address Payer Phone Subscriber Number Group Number Insured Name Patient Relationship to Insured Coverage Start Date Coverage End Date MEDICARE OF [place] [address] JAIRO LANDRUMMICHAELVIGNESH [id number] SALAS CORREIA Self - patient is the insured MEDICAID OF [facility] [address] [place] [address] [id number] SALAS CORREIA Self - patient is the insured Medical (General) History Medical History History ICD Code Denies MT,DM,CVA,Lung disease,renal dise ase elevated cholesterol left ear deafness Surgical History Surgery Date(Month/Year) tonsillectomy 1969
--- OUTSIDE RECORDS SUMMARY | 2025-05-12 23:45 | XMS_ITS | Encounter Summary ---
Author Organization [facility] Address [address] [place] [address] Phone Care Team Providers Care Machinist Mechanic Name Role Phone Ramesh Gaytan MD Primary Care Provider Encounter Details Date Type Department Care Team ([facility] st Contact Info) Description 12/04/2020 Procedure Pass [facility] Periop [address] [place] [address] Social History Tobacco Use Types Packs/Day Years [...] on filedocumented in this encounter Care Teams Machinist Mechanic Relationship Specialty Start Date End Date Ramesh Gaytan MD [address] [place] [address] [place] [address] PCP - General Internal Medicine 12/03/20 documented as of this encounter Additional Source Comments The information contained in this document represents components of the legal health record. It is not the complete legal health record.[facility]
--- OUTSIDE RECORDS SUMMARY | 2025-05-12 23:45 | XMS_ITS | Encounter Summary ---
Author Organization [facility] Address [address] [place] [address] Phone Care Team Providers Care Latex Fashions Designer Name Role Phone Ramesh Gaytan MD Primary Care Provider [phone] Encounter Details Date Type Department Care Team ([facility] Contact Info) Description 12/21/2020 Anti-coag visit [facility] [address] [place] [address] Nessa Burch, PharmD [email or web address] Social History Tobacco Use Types Packs/Day [...] on filedocumented in this encounter Care Teams Latex Fashions Designer Relationship Specialty Start Date End Date Ramesh Gaytan MD [address] [place] [address] Dr LYNN LULA [place] [address] PCP - General Internal Medicine 12/03/20 documented as of this encounter Additional Source Comments The information contained in this document represents components of the legal health record. It is not the complete legal health record.[facility]
--- OUTSIDE RECORDS SUMMARY | 2025-05-12 23:45 | XMS_ITS | Clinical Summary ---
Author Organization [facility] Address [address] [place] [address] Phone Care Team Providers Care Padded Products Finisher Name Role Phone Ramesh Gaytan MD Primary Care Provider Allergies No known active allergies Medications atorvastatin (LIPITOR) 20 MG tablet Take 20 mg by mouth daily. Active warfarin (COUMADIN) 2 MG tabletIndications :deep vein thrombosis prevention Take 4 tablets (8 mg total) by mouth every evening. Or dosing as directed by the [facility] Anticoagulation Management Service. Indications: deep vein thrombosis [...] of 2) 08/09/2011 INFLUENZA VACCINE (#1) 2024 , 02/26/2018, 12/20/2016, Additional history exists COVID-19 VACCINE (2 - 2024- season) 2025 08/12/2020 RSV VACCINE [...] this topic Medical Devices Implanted Type Area Bench Examiner Device Identifier Shelf Expiration Date Model / Serial / Lot Screw Bone 25x6.5mm Cortical Acetabular Self Tapping Cable Ready Trauma Trilogy Hip 16a - [id number] Implanted:Qty: 1 on 12/04/2020 by Colby Joseph MD at [facility] Right: Acetabulum KRISTIN / DIV OF [employer] SQUIBB [id number] 1 04/20/2029 [id number] / / [id number] Screw Bone 50x6.5mm Cortical Trilogy Tivanium Titanium Alloy Self Tapping Acetabular - [id number] Implanted:Qty: 1 on 12/04/2020 by Colby Joseph MD at [facility] Right: Acetabulum KRISTIN / DIV OF [employer] SQUIBB [id number] 1 11/18/2028 [id number] / / [id number] Screw Bone 15x6.5mm Cortical Acetabular Self Tapping Cable Ready Trauma Trilogy Hip 16a - [id number] Implanted:Qty: 1 on 12/04/2020 by Colby Joseph MD at [facility] Right: Acetabulum KRISTIN / DIV OF [employer] SQUIBB [id number] 1 12/20/2029 [id number] / / [id number] Acetabular Shell 56mm Hole Trilogy Tivanium Titanium Alloy Porous Cluster Bx/1ea - [id number] Implanted:Qty: 1 on 12/04/2020 by Colby Joseph MD at [facility] STANDARD Right: Acetabulum KRISTIN / DIV OF BRISTOL AditazzIBB [id number] 1 12/17/2029 [id number] / / [id number] Hip Liner [id number] Femoral Implant Cup Longevity Highly Crosslinked Std Polyethylene 10 Bx/1ea - [id number] Implanted:Qty: 1 on 12/04/2020 by oClby Joseph MD at [facility] STANDARD Right: Acetabulum KRISTIN / DIV OF [employer] SQUIBB [id number] 1 11/18/2024 [id number] / / [id number] Hip Stem [id number] Large Versys Fiber Metal Midcoat Tivanium Titanium Porous Collared - [id number] Implanted:Qty: 1 on 12/04/2020 by Colby Joseph MD at [facility] STANDARD Femur KRISTIN / DIV OF [employer] [id number] 06/21/2028 [id number] / / [id number] Femoral Head 32mm Plus 7mm 12/14 Taper Hip Versys [place] - [id number] Implanted:Qty: 1 on 12/04/2020 by Colby Joseph MD at [facility] Right: Femur KRISTIN / DIV OF [employer] [id number] 09/18/2029 [id number] / / [id number] Insurance [address] [place] [address] [employer] PPO MEDICARE REPLACEMENT [place] MEDICARE PART A & B [address] [place] [address] A[employer] O MEDICARE RE[place]ACEMENT [place] & B Member Subscriber Plan / Payer (Ef fective 2019-Present) Name:Constantino Richmond Member ID:[id number] Relation to Subscriber:Self Name:Constantino Richmond Subscriber ID:[id number] Payer ID:[id number] Group ID:Not on file Type:Medicare Address: [facility] [id number] [place] [id number] AETNA PPO MEDICARE REPLACEMENT [facility] MEDICARE PART A & B AETNA PPO MEDICARE [place] [address] MEDICARE PART A & B [address] [place] [address] AETNA PPO MEDICARE [facility] A & B [address] [place] [address] AETNA PPO MEDICARE REPLACEMENT [facility] A & B AETNA O MEDICARE REPLACEMENT [facility] MEDICARE PART A & B AETNA PPO MEDICARE REPLACEMENT [address] [place], [place] [address]HEALTH MEDICARE PART A & B [address] [place] [address] AETNA O MEDICARE [place] A & B Advance Directives For more information, please contact: [phone] (9AM - 5PM [facility], Monday-Monday) * Full Code (Latest Code Status on File) Date Activated Date Inactivated Comments 12/04/2020 3:12 PM Question Answer Comments Code Status Confirmed With: Patient Care Teams Padded Products Finisher Relationship Specialty Start Date End Date Ramesh Gaytan MD [address] [place] [address] [place] [address] PCP - General Internal Medicine 12/03/20 Additional Source Comments The information contained in this document represents components of the legal health record. It is not the complete legal health record.[facility]
[2025-05-12 23:52] VITALS: BP 129/65; PULSE 72; RESP 18; TEMP 36.9; O2SAT 94; O2SAT 98
[2025-05-13 02:37] VITALS: BP 147/71; PULSE 69; RESP 18; TEMP 36.5; O2SAT 96
== END 2025-05-13 02:38 | disposition home or self-care (01) ==
PROVIDERS: Physician Assistant; Emergency Provider Emergency Medicine; PCP Physician Assistant
DX: J06.9 Acute upper respiratory infection, unspecified (principal); R05.9 Cough, unspecified; R11.10 Vomiting, unspecified; R19.7 Diarrhea, unspecified
CPT/HCPCS: 71046; 87637; 87651; 99283; 99284

== ENCOUNTER → 2025-05-12 19:56 | Outpatient (BNV) | payer MEDICARE, MEDICAID, SELFPAY | PROVIDERS: PCP Physician Assistant; Visit Provider Radiology Diagnostic Radiology | DX: R05.9 Cough, unspecified (principal) | CPT/HCPCS: 71046 ==

== ENCOUNTER 2025-05-19 10:50 | Outpatient (AMB) | payer MEDICARE, MEDICAID, SELFPAY ==
--- NOTE | 2025-05-19 10:54 | A.OFFPC_ITS ---
Vital Signs 05/19/25 10:55 Height 5 ft 11 in Weight 224 lb 4 oz BMI 31.3 BP 140/90 H Blood Pressure Location Lt brachial Position Sitting Respiration 16 Pulse 74 Pulse Source Pulse Oximeter Temp 97.1 F Temp Source Temporal Artery Scan Pulse Oximetry (%) 97 Oxygen Delivery Method Room Air Intake Visit Reasons: Congestion Chemical Detection Expert Required: No Accompanied by: Self / Same As Patient Allergies No Known Allergies Allergy (Verified 05/19/25 10:54) Medication List - Last Reconciled 05/19/25 by Sergo Ellis MD acetaminophen 1,000 mg (2 x 500 mg) PO .q8 PRN atorvastatin 20 mg PO BEDTIME 90 days cyanocobalamin (vitamin B-12) 1,000 mcg PO DAILY ibuprofen 600 mg PO Q8H PRN Tobacco use date assessed: 03/10/25 Dental Screening Dental Screen Date: 03/10/25 HPI HPI Comments History of Present Illness Details History of Present Illness The patient is a 64-year-old male presenting with symptoms of an upper respiratory infection that began one week ago. He reports initial symptoms of pressure behind his eyes and forehead, which he described as feeling like cement, along with nasal obstruction, runny nose, and a cough that made him feel as if his lungs were going to explode. He also experienced a severe sore throat, with pain upon swallowing that he likened to being jabbed with an ice pick. He has a productive cough with a small amount of reddish sputum. He has self-treated with Tylenol, ibuprofen, and Mucinex for 3-4 days, which provided some relief. He also used a saline nasal spray and found that hot baths and steam inhalation have been helpful. He states his congestion has improved slightly, and facial tenderness has decreased over the past week. The patient's chronic medications include atorvastatin 20 mg for hypercholesterolemia and vitamin B12. 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 [facility] Medical History (Updated 05/19/25 @ 11:17 by Sergo Ellis MD) B12 deficiency Sinus congestion Right leg DVT Essential tremor Hearing loss in left ear High cholesterol Surgical History (Updated 03/10/25 @ 09:34 by EMERITA Bolanos) History of colonoscopy (~06/24/15) History of hip replacement Social History Housing: Apartment Patient Tobacco Use Status: Never used Tobacco e-Cigarette/Vaping Use: Never Used service: No Current occupational status: employed Current occupation: [employer] Questionnaire Thrive Questionnaire Date Thrive assessed: 03/10/25 AUDIT C Alcohol Use Questionnaire (AUDIT-C) 1. How often do you have a drink containing alcohol?: Never 3. How often do you have six or more drinks on one occasion?: Never Total Score: 0 MARY-7 AMB Questionnaire MARY-7 Date MARY - 7 assessed: 03/10/25 Source: Developed by Drs. Dao Steen, Dawn Martin, Herman Barnett and colleagues, with an educational tate from [employer]. Review of Systems Narrative Review of Systems - Constitutional: Reports feeling unwell for one week. - Denies fever. - HEENT: Reports pressure behind the eyes and in the forehead, nasal congestion, a runny nose, and severe sore throat with odynophagia. - Respiratory: Reports a cough productive of a small amount of reddish sputum and pain with coughing. All systems reviewed & are unremarkable except as reviewed in HPI and above Physical exam (Primary Care) Vital Signs: Last Vital Signs Temp 97.1 F 05/19/25 10:55 Pulse 74 05/19/25 10:55 Resp 16 05/19/25 10:55 BP 140/90 H 05/19/25 10:55 Pulse Ox 97 05/19/25 10:55 Oxygen Delivery Method Room Air 05/19/25 10:55 BMI result Body Mass Index 31.3 Tobacco/Smoking Status: Tobacco use Status Tobacco use date assessed 03/10/25 05/19/25 10:59 Patient Tobacco Use Status Never used Tobacco 05/19/25 10:59 e-Cigarette/Vaping Use Never Used 05/19/25 10:59 Thrive Assessment: Date of Thrive Assessment Date Thrive assessed 03/10/25 05/19/25 10:59 Narrative Physical Exam General: +Alert and oriented, Well nourished, No acute distress. Eye: Pupils are equal, round and reactive to light, Intact accommodation, Extraocular movements are intact, Normal conjunctiva, Vision unchanged. HENT: Normocephalic, Atraumatic, Tympanic membranes are clear, Normal hearing, Oral mucosa is moist, No pharyngeal erythema, Ear canals patent. Respiratory: Lungs CTA bilaterally, No wheeze, Respirations are non-labored, Cough present, producing reddish sputum. Cardiovascular: Regular rate, Regular rhythm, S1 auscultated, S2 auscultated, No murmur, Good pulses equal in all extremities, Normal peripheral perfusion, No edema. Gastrointestinal: Soft, Non-tender, Non-distended, Normal bowel sounds, No organomegaly. Musculoskeletal: Normal range of motion, Normal strength, No tenderness, No swelling, No deformity, Normal gait. Integumentary: Warm, Dry, [place], Intact. Neurologic: Alert, Oriented, Normal sensory, Normal motor function, No focal defects, Cranial Nerves II-XII are grossly intact, Normal deep tendon reflexes. Psychiatric: Cooperative, Appropriate mood & affect, Normal judgment. Coding Level of Care Code Est Pt Level 4 (85731) Add On Problem Visit Only Diagnoses Sinus congestion R09.81 High cholesterol E78.00 B12 deficiency E53.8 Assessment & Plan Assessment & Plan (1) Sinus congestion: Comment: - The patient's presentation is most consistent with a viral etiology given the symptom complex and absence of fever. - The condition is improving. - The plan is for supportive care. - A prescription for pseudoephedrine was sent to the pharmacy for decongestion, to be used up to four times daily. - Advised to use steam inhalation, Vicks, and a room humidifier to help with secretions. - Antibiotics are not indicated at this time but will be reconsidered if symptoms persist or worsen over the next one to two weeks. Code(s): R09.81 - Nasal congestion Category: Medical (2) High cholesterol: Comment: - This condition is stable. - The plan is to continue the current dose of atorvastatin 20 mg. Code(s): E78.00 - Pure hypercholesterolemia, unspecified Category: Medical (3) B12 deficiency: Comment: - The patient is to continue taking his vitamin B12 supplement. Code(s): E53.8 - Deficiency of other specified B group vitamins Category: Medical Plan: Health Maintenance: - The patient was advised to stay active and keep moving. - The patient is taking atorvastatin 20 mg for management of hypercholesterolemia. - The patient continues to take vitamin B12. Patient was informed and verbally consented to the use of an ambient scribe for clinic note documentation during this visit. Plan I explained to the patient that his symptoms are most consistent with a viral illness, likely acute bronchitis, and that a bacterial infection is unlikely given the absence of fever. I advised against antibiotic therapy at this time, emphasizing supportive care instead. I sent a prescription for pseudoephedrine to his pharmacy for congestion and recommended edfa-ols-exoxbmj measures such as steam inhalation and using a humidifier. We discussed that a post-viral cough can linger for up to six weeks. I instructed him to follow up in one to two weeks if his symptoms have not improved, at which point we could reconsider antibiotics. We confirmed he should continue his current medications, atorvastatin and vitamin B12. Medications: New pseudoephedrine HCl (Nasal Decongestant (pseudoephedrine)) DNExceed 4 doses/24h 30 mg PO Q4-6H PRN 24 caps 0RF nasal congestion 5 days Patient Instructions: - Your symptoms are likely due to a viral infection, like bronchitis. - It is not a bacterial infection, so antibiotics are not needed right now. - I have sent a prescription for Pseudoephedrine (also known as Sudafed) to your pharmacy to help with your congestion. - You can take it up to four times a day. - Use steam to help your symptoms. - You can take hot baths or showers, or use Vicks VapoRub. - Use a humidifier to keep the air in your room from getting too dry. - Drink hot liquids like tea to help your secretions. - Continue taking your atorvastatin for cholesterol and your vitamin B12. - Stay active and keep moving. - A cough can sometimes last for up to six weeks after a virus. - If you are not getting better in one to two weeks, or if you feel worse, please contact the office.
[2025-05-19 10:55] VITALS: BP 140/90; PULSE 74; RESP 16; TEMP 36.2; O2SAT 97; BMI 31.3
--- OUTSIDE RECORDS SUMMARY | 2025-05-19 12:29 | XMS_ITS | Patient Health Record ---
Author Organization [facility] Address [address] [place] [address] Care Team Providers Care Wage And Salary Administrator Name Role Phone Lukas (RETIRED) Ramesh GOMES Primary Care Provider Unavailable Michael June Jr Unavailable [phone] Reason For Referral No Information Medications Medication SIG (Take, Route, Frequency, Duration) Notes Start Date End Date Status Colyte with Flavor Packs 240 GM Solution Reconstituted As directed Orally Over the specified time.; Duration: 1 day(s) 03/04/2015 Active Atorvastatin Calcium Active Social History Social History Additional Details Category Social Info Options Details Miscellaneous: Marital status: single Occupation: medicare sales executive Problems Problem Type SNOMED Code ICD Code Onset Dates Problem Status W/U Status Risk Notes Problem Colon cancer screening (368587847) Colon cancer screening (Z12.11) Active confirmed Plan Of Treatment Future Test Test Name Order Date COLONOSCOPY 03/04/2015 Insurance Providers Payer Name Payer Address Payer Phone Subscriber Number Group Number Insured Name Patient Relationship to Insured Coverage Start Date Coverage End Date MEDICARE OF [place] [address] JAIRO LANDRUMMICHAELVIGNESH [phone] [id number] SALAS CORREIA Self - patient is the insured MEDICAID OF [facility] [address] [place] [phone] [id number] SALAS CORREIA Self - patient is the insured Medical (General) History Medical History History ICD Code Denies [place],DM,CVA,Lung disease,renal dise ase elevated cholesterol left ear deafness Surgical History Surgery Date(Month/Year) tonsillectomy 1969
--- OUTSIDE RECORDS SUMMARY | 2025-05-19 12:29 | XMS_ITS | Encounter Summary ---
Author Organization [facility] Address [address] [place] [address] Phone Care Team Providers Care National Sales Consultant Name Role Phone Ramesh Gaytan MD Primary Care Provider [phone] Encounter Details Date Type Department Care Team ([facility] st Contact Info) Description 12/04/2020 Procedure Pass [facility] Periop [address] [place] [address] Social History Tobacco Use Types Packs/Day Years [...] on filedocumented in this encounter Care Teams National Sales Consultant Relationship Specialty Start Date End Date Ramesh Gaytan MD [address] [place] [address] [place] [address] PCP - General Internal Medicine 12/03/20 documented as of this encounter Additional Source Comments The information contained in this document represents components of the legal health record. It is not the complete legal health record.[facility]
--- OUTSIDE RECORDS SUMMARY | 2025-05-19 12:29 | XMS_ITS | Encounter Summary ---
Author Organization [facility] Address [address] [place] [address] Phone Care Team Providers Care Channel Cementer Insole Machine Name Role Phone Ramesh Gaytan MD Primary Care Provider [phone] Encounter Details Date Type Department Care Team ([facility] Contact Info) Description 12/21/2020 Anti-coag visit [facility] [address] [place] [address] Nessa Burch, PharmD [email or web address] Social History Tobacco Use Types Packs/Day [...] on filedocumented in this encounter Care Teams Channel Cementer Insole Machine Relationship Specialty Start Date End Date Ramesh Gaytan MD [address] [place] [address] Dr LYNN LULA [place] [address] PCP - General Internal Medicine 12/03/20 documented as of this encounter Additional Source Comments The information contained in this document represents components of the legal health record. It is not the complete legal health record.[facility]
--- OUTSIDE RECORDS SUMMARY | 2025-05-19 12:29 | XMS_ITS | Clinical Summary ---
Author Organization [facility] Address [address] [place] [address] Phone Care Team Providers Care Locomotive Driver Name Role Phone Ramesh Gaytan MD Primary Care Provider Allergies No known active allergies Medications atorvastatin (LIPITOR) 20 MG tablet Take 20 mg by mouth daily. Active warfarin (COUMADIN) 2 MG tabletIndications :deep vein thrombosis prevention Take 4 tablets (8 mg total) by mouth every evening. Or dosing as directed by the [facility] Anticoagulation Management Service. Indications: deep vein [...] this topic Medical Devices Implanted Type Area Box Truck Washer Device Identifier Shelf Expiration Date Model / Serial / Lot Screw Bone 25x6.5mm Cortical Acetabular Self Tapping Cable Ready Trauma Trilogy Hip 16a - [id number] Implanted:Qty: 1 on 12/04/2020 by Colby Joseph MD at [facility] Right: Acetabulum KRISTIN / DIV [employer] SQUIBB [id number] 1 04/20/2029 [id number] / / [id number] Screw Bone 50x6.5mm Cortical Trilogy Tivanium Titanium Alloy Self Tapping Acetabular - [id number] Implanted:Qty: 1 on 12/04/2020 by Colby Joseph MD at [facility] Right: Acetabulum KRISTIN / DIV [employer] SQUIBB [id number] 1 11/18/2028 [id number] / / [id number] Screw Bone 15x6.5mm Cortical Acetabular Self Tapping Cable Ready Trauma Trilogy Hip 16a - [id number] Implanted:Qty: 1 on 12/04/2020 by Colby Joseph MD at [facility] Right: Acetabulum KRISTIN / DIV [employer] SQUIBB [id number] 1 12/20/2029 [id number] / / [id number] Acetabular Shell 56mm Hole Trilogy Tivanium Titanium Alloy Porous Cluster Bx/1ea - [id number] Implanted:Qty: 1 on 12/04/2020 by Colby Joseph MD at [facility] STANDARD Right: Acetabulum KRISTIN / DIV OF [employer] [id number] 1 12/17/2029 [id number] / / [id number] Hip Liner 09p22ve Femoral Implant Cup Longevity Highly Crosslinked Std Polyethylene 10 Bx/1ea - [id number] Implanted:Qty: 1 on 12/04/2020 by Colby Joseph MD at [facility] STANDARD Right: Acetabulum KRISTIN / DIV OF [employer] SQUIBB [id number] 1 11/18/2024 [id number] / / [id number] Hip Stem [id number] Large Versys Fiber Metal Midcoat Tivanium Titanium Porous Collared - [id number] Implanted:Qty: 1 on 12/04/2020 by Colby Joseph MD at [facility] STANDARD Femur KRISTIN / DIV OF [employer] [id number] 06/21/2028 [id number] / / [id number] Femoral Head 32mm Plus 7mm 12/14 Taper Hip Versys [place] - [id number] Implanted:Qty: 1 on 12/04/2020 by Colby Joseph MD at [facility] Right: Femur KRISTIN / DIV OF [employer] [id number] 09/18/2029 [id number] / / [id number] Insurance [address] [place] [address] [employer] PPO MEDICARE REPLACEMENT [place] MEDICARE PART A & B [address] [place] [address] [employer] O MEDICARE RE[place]ACEMENT [place] & B Member Subscriber Plan / Payer (Ef fective 2019-Present) Name:Constantino Richmond Member ID:[id number] Relation to Subscriber:Self Name:Constantino Richmond Subscriber ID:[id number] Payer ID:[id number] Group ID:Not on file Type:Medicare Address: [employer] [id number] [place] [address] A[employer] PPO MEDICARE REPLACEMENT [facility] MEDICARE PART A & B AETNA PPO MEDICARE [place] [address] MEDICARE PART A & B [address] [place] [address] AETNA PPO [facility]IC[facility] RE[facility] & B [address] [place] [address] AETNA PPO MEDICARE [facility]ACEMENT [facility] B AETNA O MEDICARE REPLACEMENT [facility] MEDICARE PART A & B AETNA PPO MEDICARE REPLACEMENT [address] [place], [place] [address]HEALTH MEDICARE PART A & B [address] [place] [address] [employer] O MEDICARE RE[place]ACEMENT [place] PART A & B Advance Directives For more information, please contact: [phone] (9AM - 5PM Jeaneth/[facility], Monday-Monday) * Full Code (Latest Code Status on File) Date Activated Date Inactivated Comments 12/04/2020 3:12 PM Question Answer Comments Code Status Confirmed With: Patient Care Teams Locomotive Driver Relationship Specialty Start Date End Date Ramesh Gaytan MD [address] [place] [address] [place] [address] PCP - General Internal Medicine 12/03/20 Additional Source Comments The information contained in this document represents components of the legal health record. It is not the complete legal health record.[facility]
--- OUTSIDE RECORDS SUMMARY | 2025-05-19 12:29 | XMS_ITS | Encounter Summary ---
Author Organization [facility] Address [address] [place] [address] Phone Care Team Providers Care Director Media Name Role Phone Ramesh Gaytan MD Primary Care Provider [phone] Encounter Details Date Type Department Care Team ([facility] Contact Info) Description 12/09/2020 Anti-coag visit [...] on filedocumented in this encounter Care Teams Director Media Relationship Specialty Start Date End Date Ramesh Gaytan MD [address] [place] [address] Dr LYNN LULA DYLAN [address] PCP - General Internal Medicine 12/03/20 documented as of this encounter Additional Source Comments The information contained in this document represents components of the legal health record. It is not the complete legal health record.[facility]
== END 2025-05-19 11:12 | disposition home or self-care (01) ==
LOC: HO.HMCHD 10:51
PROVIDERS: PCP Physician Assistant; Visit Provider Student in an Organized Health Care Education/Training Program
DX: R09.81 Nasal congestion (principal); E78.00 Pure hypercholesterolemia, unspecified; E53.8 Deficiency of other specified B group vitamins

== ENCOUNTER → 2025-05-19 10:50 | Outpatient (BNVA) | payer MEDICARE, MEDICAID, SELFPAY | PROVIDERS: PCP Physician Assistant; Visit Provider Student in an Organized Health Care Education/Training Program | DX: R09.81 Nasal congestion (principal); E78.00 Pure hypercholesterolemia, unspecified; E53.8 Deficiency of other specified B group vitamins | CPT/HCPCS: 99212 ==